=== PATIENT | male | born 1980 | race Caucasian/White ===

== ENCOUNTER 2018-10-19 12:20 | Emergency (ER) | payer BC, OTHER ==
[2018-10-19 13:21] LABS: INR-International Normal Ratio 1.3; Prothrombin Time 16.7 SEC (12.0-14.7)
[2018-10-19 13:25] LABS: ALT (SGPT) 56 U/L (8-55); AST (SGOT) 115 U/L (5-34); Albumin 2.6 g/dL (3.5-5.0); Alkaline Phosphatase 229 U/L (40-150); Anion Gap 14 mmol/L (10-20); BUN (Urea Nitrogen) 13 mg/dL (8.9-20.6); Bilirubin, Total 10.7 mg/dL (0.2-1.2); Calc. Creatinine Clearance 0 mL/min (70-130); Carbon Dioxide 19 mmol/L (22-29); Chloride 105 mmol/L (98-107); Estimated GFR-MDRD Greater than 90; Globulin 4.4 g/dL (2.4-3.5); Glucose 182 mg/dL (70-105); Lipase 53 U/L (8-78); Potassium 4.5 mmol/L (3.5-5.1); Sodium 133 mmol/L (136-145)
[2018-10-19 13:27] LABS: ALT (SGPT) 57 U/L (8-55); AST (SGOT) 109 U/L (5-34); Albumin 2.7 g/dL (3.5-5.0); Alkaline Phosphatase 235 U/L (40-150); Bilirubin, Direct 8.2 mg/dL (0.1-0.3); CK (CPK) 104 U/L (30-200); Protein, Total 6.7 g/dL (6.0-8.3)
[2018-10-19 13:29] LABS: Anisocytosis SLIGHT = 6-15 cells (100X) (0-5/hpf); Band 4 % (5-11); Eosinophils 1 % (0-10); Hemoglobin 11.9 g/dL (14.0-18.0); Hypochromia SLIGHT = 6-15 cells (100X) (0-5/hpf); Lymphocytes 8 % (21-51); MDiff Complete? YES; Mean Corpuscular HGB CONC 33.7 g/dL (32.0-36.0); Mean Corpuscular Hemoglobin 33.2 pg (27.0-31.0); Mean Corpuscular Volume 98.3 fL (78.0-98.0); Mean Platelet Volume 8.8 fL (7.4-10.4); Monocytes 5 % (0-10); Neutrophil 79 % (42-75); PLT Morphology Comment Appears Adequate; Platelet Count 158 thou/uL (130-400); RBC Distribution Width 13.2 % (11.5-14.5); Reactive Lymphocytes 1 % (0-10); Target Cells SLIGHT = 2-5 cells (100X) (0-1/hpf); White Blood Cell (WBC) Count 8.6 thou/uL (4.8-10.8)
--- NOTE | 2018-10-19 13:32 | RAD ---
FRONTAL VIEW CHEST LEFT RIB SERIES 4 VIEWS: Date: 10/19/18 INDICATION: Cough with popping sensation in left chest/rib pain. FINDINGS: The lungs are clear. No effusion or pneumothorax. Cardiac silhouette is within normal limits of size. Evaluation of the left ribs does not reveal evidence of discrete fracture. IMPRESSION: 1. No acute, displaced left rib fracture. 2. No focal consolidation. POS: [facility]
== END 2018-10-19 14:36 | disposition home or self-care (01) ==
LOC: SCSER 12:20
DX: S29.011A Strain of muscle and tendon of front wall of thorax, initial encounter (principal); R18.8 Other ascites; K74.60 Unspecified cirrhosis of liver; R17 Unspecified jaundice; D64.9 Anemia, unspecified; E11.9 Type 2 diabetes mellitus without complications; I10 Essential (primary) hypertension; F17.210 Nicotine dependence, cigarettes, uncomplicated; X58.XXXA Exposure to other specified factors, initial encounter
CPT/HCPCS: 36415; 80053; 82140; 82550; 83690; 83880; 84484; 85025; 85610; 85730; 99406

== ENCOUNTER 2018-10-28 11:14 | Inpatient (IN) | payer OTHER ==
[2018-10-28 12:03] LABS: #Eosinphils 0.1 thou/uL (0.0-0.7); #Lymphocytes 1.2 thou/uL (1.20-3.40); #Monocytes 2.1 thou/uL (0.11-0.59); #Neutrophils 16.2 thou/uL (1.40-6.50); %Basophils 0.1 % (0.0-1.0); %Eosinophils 0.6 % (0.0-10.0); %Lymphocytes 6.2 % (21.0-51.0); %Monocytes 10.5 % (0.0-10.0); %Neutrophils 82.6 % (42.0-75.0); Hemoglobin 8.7 g/dL (14.0-18.0); Mean Corpuscular HGB CONC 33.7 g/dL (32.0-36.0); Mean Corpuscular Hemoglobin 35.2 pg (27.0-31.0); Mean Platelet Volume 8.3 fL (7.4-10.4); Platelet Count 340 thou/uL (130-400); Red Blood Cell (RBC) Count 2.48 mill/uL (4.70-6.10); White Blood Cell (WBC) Count 19.6 thou/uL (4.8-10.8)
[2018-10-28 12:23] LABS: ALT (SGPT) 68 U/L (8-55); AST (SGOT) 109 U/L (5-34); Alkaline Phosphatase 167 U/L (40-150); Anion Gap 16 mmol/L (10-20); BUN (Urea Nitrogen) 55 mg/dL (8.9-20.6); Calc. Creatinine Clearance 0 mL/min (70-130); Calcium 8.3 mg/dL (7.8-10.44); Carbon Dioxide 18 mmol/L (22-29); Chloride 96 mmol/L (98-107); Estimated GFR-MDRD 68; Globulin 3.2 g/dL (2.4-3.5); Glucose 194 mg/dL (70-105); Potassium 5.8 mmol/L (3.5-5.1); Protein, Total 5.2 g/dL (6.0-8.3); Sodium 124 mmol/L (136-145)
[2018-10-28 12:23] LABS: Bilirubin Large (Negative); Blood, Urine Negative (Negative); Clarity CLOUDY (Clear); Glucose, Urine (Dipstick) Negative (Negative); Leukocyte Small (Negative); Nitrite Negative (Negative); Protein, Urine (Dipstick) Negative (Neg-Trace); Specific Gravity, Urine 1.017 (1.002-1.036)
[2018-10-28 12:25] LABS: Bacteria/HPF None Seen HPF (None Seen); RBC/HPF 0-3 HPF (0-3); Squamous Epithelial 0-3 HPF (0-3)
[2018-10-28 12:27] LABS: Pathc Cast-AUWi Flag 10.75 (0-2.49)
[2018-10-28 12:40] LABS: Yeast-AUWi Flag 62.9 (0-25.0); Yeast-All Forms None Seen HPF (None Seen)
[2018-10-28] MEDS ORDERED: Sodium Chloride 0.9% 100 ML ONE (12:55)
[2018-10-28] MEDS ORDERED: cefTRIAXone\\ROCEPHIN 1 GM VIAL ONE (12:56)
[2018-10-28 13:42] LABS: PTT 34.1 SEC (22.9-36.1); Prothrombin Time 22.6 SEC (12.0-14.7)
[2018-10-28] MEDS ORDERED: Lidocaine 1% PF 5 ML VIAL ONE ×2 (14:02→14:07)
[2018-10-28] MEDS ORDERED: Albumin 25% 25 GM/100 ML BOT IVPB SCH ×2 (14:15→14:45)
--- NOTE | 2018-10-28 15:38 | PDOC.FPRHP ---
- History of Present Illness Chief Complaint: confusion History of Present Illness: 38yo M with hx of alcohol abuse presents with 1 week hx of increasing abdominal distention and increasing confusion. Pt reports that the pt has been seeing his PCP (Dr. Mujica) who consulted GI (Dr. Iglesias) and that they had plans for paracentesis this week as well as abdominal CT but that his AMS has become intolerable. Of note pt has been anemic for a year and has reportedly had EGD and Colonoscopy in the spring but has found no source of anemia. ED Course: albumin, Rocephin 1g - Allergies/Adverse Reactions Allergies Allergy/AdvReac Type Severity Reaction Status Date / Time No Known Allergies Allergy Verified 10/26/18 09:09 - Home Medications Medication Instructions Recorded Confirmed Type Amlodipine [Norvasc] 10 mg PO DAILY 10/26/18 10/28/18 History Aspirin [Aspirin Chewable] 81 mg PO DAILY 10/26/18 10/26/18 History Ferrous Sulfate 325 mg PO DAILY 10/26/18 10/28/18 History Furosemide 40 mg PO DAILY 10/26/18 10/28/18 History Lisinopril/Hydrochlorothiazide 1 tablet PO DAILY 10/26/18 10/28/18 History [Lisinopril-Hctz 20-12.5 mg Tab] Multivitamin with Iron 1 each PO DAILY 10/26/18 10/28/18 History [Multivitamins with Iron] Spironolactone 100 mg PO DAILY 10/26/18 10/28/18 History metFORMIN HCl [Metformin ER 500 mg PO BID 10/26/18 10/28/18 History Osmotic] - History PMHx: DM, HTN, anemia PSHx: none FHx: non contibutory Social: EtOH- Pt reported drinking 4-5 standardized drinks of alcohol every night for the last 8 years. He quit drinking 1 month ago. Former smoker. Former cocaine use. - Review of Systems General: reports: fatigue. denies: fever/chills Eyes: denies: eye pain, vision changes ENT: denies: nasal congestion, rhinorrhea Respiratory: reports: cough. denies: congestion, shortness of breath Cardiovascular: denies: chest pain, palpitation Gastrointestinal: denies: nausea, vomiting Genitourinary: denies: incontinence, dysuria Skin: reports: jaundice, other (spider angiomas) Musculoskeletal: denies: pain, tenderness Neurological: denies: numbness, syncope Psychological: denies: anxiety, depression - Vital signs BP: [103/66] HR: [109] RR: [28] Tmax: [97.7] Pox: [100]% on [ra] Wt: [112kg] - Physical Exam Constitutional: awake, alert and oriented, other (pt appears mildy uncomfortable ) HEENT: normocephalic and atraumatic, EOMI, grossly normal vision, grossly normal hearing Neck: supple, trachea midline Chest: no-tender to palpation Heart: RRR, other (grade 3/6 holosystolic murmur (chronic)) Lungs: CTAB, no wheezing Abdomen: bowel sounds present, other (distended) Musculoskeletal: normal structure, normal tone Neurological: no focal deficit, normal sensation Skin: no rash/lesions, other (Jaundice) Heme/Lymphatic: no unusual bruising or bleeding Psychiatric: other (flat affect, marginal judgement) FMR H&P: Results - Labs Result Diagrams: 10/28/18 19:55 10/28/18 19:55 Lab results: WBC 19.6 thou/uL (4.8-10.8) H 10/28/18 11:53 Hgb 8.7 g/dL (14.0-18.0) L 10/28/18 11:53 Hct 25.9 % (42.0-52.0) L 10/28/18 11:53 MCV 104.0 fL (78.0-98.0) H 10/28/18 11:53 Plt Count 340 thou/uL (130-400) 10/28/18 11:53 Neutrophils % 82.6 % (42.0-75.0) H 10/28/18 11:53 Sodium 124 mmol/L (136-145) L 10/28/18 11:53 Potassium 5.8 mmol/L (3.5-5.1) H 10/28/18 11:53 Chloride 96 mmol/L (98-107) L 10/28/18 11:53 Carbon Dioxide 18 mmol/L (22-29) L 10/28/18 11:53 BUN 55 mg/dL (8.9-20.6) H 10/28/18 11:53 Creatinine 1.19 mg/dL (0.7-1.3) 10/28/18 11:53 Glucose 194 mg/dL (70-105) H 10/28/18 11:53 Lactic Acid 5.0 mmol/L (0.5-2.2) H* 10/28/18 12:18 Calcium 8.3 mg/dL (7.8-10.44) 10/28/18 11:53 Total Bilirubin 10.0 mg/dL (0.2-1.2) H 10/28/18 11:53 AST 109 U/L (5-34) H 10/28/18 11:53 ALT 68 U/L (8-55) H 10/28/18 11:53 Alkaline Phosphatase 167 U/L (40-150) H 10/28/18 11:53 Ammonia 100 umol/L (18-72) H 10/28/18 12:17 B-Natriuretic Peptide Less than 10.0 pg/mL (0-100) 10/28/18 11:53 Serum Total Protein 5.2 g/dL (6.0-8.3) L 10/28/18 11:53 Albumin 2.0 g/dL (3.5-5.0) L 10/28/18 11:53 Urine Ketones Trace mg/dL (Negative) H 10/28/18 12:10 Urine Blood Negative (Negative) 10/28/18 12:10 Urine Nitrite Negative (Negative) 10/28/18 12:10 Ur Leukocyte Esterase Small (Negative) H 10/28/18 12:10 Urine RBC 0-3 HPF (0-3) 10/28/18 12:10 Urine WBC 4-6 HPF (0-3) H 10/28/18 12:10 Ur Squamous Epith Cells 0-3 HPF (0-3) 10/28/18 12:10 Urine Bacteria None Seen HPF (None Seen) 10/28/18 12:10 FMR H&P: A/P - Problem List (1) Sepsis Current Visit: Yes Status: Acute Code(s): A41.9 - SEPSIS, UNSPECIFIED ORGANISM (2) Ascites due to alcoholic cirrhosis Current Visit: Yes Status: Acute Code(s): K70.31 - ALCOHOLIC CIRRHOSIS OF LIVER WITH ASCITES (3) Hepatic encephalopathy Current Visit: Yes Status: Acute Code(s): K72.90 - HEPATIC FAILURE, UNSPECIFIED WITHOUT COMA (4) Hyperkalemia Current Visit: Yes Status: Acute Code(s): E87.5 - HYPERKALEMIA (5) Fluid overload Current Visit: Yes Status: Acute Code(s): E87.70 - FLUID OVERLOAD, UNSPECIFIED (6) Hypertension Current Visit: Yes Status: Acute Code(s): I10 - ESSENTIAL (PRIMARY) HYPERTENSION (7) Anemia Current Visit: Yes Status: Acute Code(s): D64.9 - ANEMIA, UNSPECIFIED (8) Liver failure, acute Current Visit: Yes Status: Acute (9) Lactic acidosis Current Visit: Yes Status: Acute Code(s): E87.2 - ACIDOSIS - Plan 38yo M with pmh of alcohol abuse presents with 1 week hx of AMS and abdominal distention Sepsis with concern for SBP A- meets sirs criteria though he is not ttp in abdomen and ascitic fluid was clear yellow. s/p rocephin in the ED P- admit to tele - continue Rocephin 2g daily - Await studies of ascitic fluid - BCx - trend CBC Hyperkalemia A- Potassium 5.8, no cardiac symptoms as of now. P- Will give Kayexelate and insulin - recheck CMP in AM Fluid Overload 2/2 Liver failure A- Pt is overloaded but is not in respiratory distress and appears stable P- Lasix 40mg IV daily - fluid restrict to 1500ml/day - GI has been consulted - monitor symptoms and physical exam HTN A- hx of htn, though pt is not hypertensive P- hold home meds DM -continue home metformin Anemia -will get hemoccult -await GI recs Dispo: inpatient, at least two midnights IVF- SL as of now, fluid restrict diet Code: full FMR H&P: Upper Level - Pertinent history 38 yo Male coming in with week history of bloating, abdominal pain and swelling. stated she had noticed bloating off and on for the last month. Reports it just getting worse this week. Reports getting more yellow in color the last few days. denies pt being overly confused but states his speech being off. Also reports being more tired than usual. Pt had been seeing Dr. Mujica this week and was going to see Dr. Iglesias early this week. mentioned possible concern for budd-chiari. Pt denies any chest pain. Pt did reports some difficulty with breathing. Pt anemic today at hgb 8, down from hgb last week of 12. Pt reports dealing with anemia for last year. Reports that never really found a source but was put on iron and got better. - Pertinent findings Pt ammonia 100. WBC of 19.6 K of 5.8 Pt RR 24, and tachy in low 100's. Pt is A&Ox3. General: Jaundiced. Pt appears somewhat ill Cardio: Systolic murmur noted. Regular Rhythm. Tachy. No gallops Lungs: Some mild crackles noted. No wheezes or rales Abdomen: Severly distended. Ascites noted. Fluid wave noted. NTTP. No masses Neuro: No focal neuro defecit : Testicles severly distended. No redness. NTTP Ext: Pt has +1 edma in lower extremities. Pedal pulses palpated bilaterally - Plan Date/Time: 10/28/18 1538 I, [Fizt Chavarria], have evaluated this patient and agree with findings/plan as outlined by corporate intern resident. Pertinent changes/additions are listed here. Sepsis with concern for SBP - meets sirs criteria though he is not ttp in abdomen and ascitic Pt RR 24, pt tachy and has WBC of 19.6. fluid was clear yellow. s/p rocephin in the ED -Diagnostic Paracentesis 10/28/18- sent for stain and culture. - admit to tele - continue Rocephin 2g daily - BCx - trend CBC Hyperkalemia Potassium 5.8, no cardiac symptoms as of now. Will give Kayexelate and insulin -Pt sinus tach on EKG - recheck CMP in AM Fluid Overload 2/2 Liver failure Pt is overloaded but is not in respiratory distress and appears stable -Lasix 40mg IV daily -fluid restrict to 1500ml/day - GI consulted- Dr. Iglesias- follow recs. - monitor symptoms and physical exam Hepatic Encephalopathy -Pt A&Ox3. but pt reported he has just been off and somnolent for last week -Ammonia 100 -Px lactulose -GI consulted Lactic Acidosis -Likely due to liver failure and not clearing. Could be due to SBP -Will await cx. HTN hx of htn, though pt is not hypertensive hold home meds DM -continue home metformin -accuchecks AC/HS Anemia Pt Hgb 12 last week at ER and now 8 today. denies any bloody emitus -will get hemoccult, if positive will repeat CBC. If neg will trend daily CBC -Possible GI bleed. -GI consulted- follow recs -Will replace if <7 -
[2018-10-28 16:14] LABS: BF Color Yellow; Body Fluid Source Ascites Body Fluid; Clarity Hazy (Clear); Tube # 2
[2018-10-28] MEDS ORDERED: Ondansetron PF 4 MG/2 ML Vial IVP PRN (16:14)
[2018-10-28] MEDS ORDERED: Insulin Regular 300 UNITS/3 ML VIAL SC SCH (16:14)
[2018-10-28] MEDS ORDERED: Ondansetron ODT 4 MG TAB PO PRN (16:14)
[2018-10-28] MEDS ORDERED: Furosemide 40 MG/4 ML VIAL SLOW IVP SCH (16:14)
[2018-10-28 16:25] LABS: BF RBC Count - Manual 2525 /cumm; BF WBC/Nonhematics Ct. - Manua 73 /cumm
[2018-10-28 16:38] LABS: BF Segmented Neutrophils 17 %; Cell Count Non Hematic 64 %; Lymphocytes 19 %
[2018-10-28] MEDS ORDERED: metFORMIN 500 MG TAB PO SCH (17:00)
[2018-10-28] MEDS ORDERED: Insulin Regular 300 UNITS/3 ML VIAL ONE (17:13)
[2018-10-28] MEDS ORDERED: Dextrose 50% Abboject 50 ML SYRINGE ONE (17:13)
[2018-10-28] MEDS ORDERED: Furosemide 40 MG/4 ML VIAL ONE (17:28)
[2018-10-28] MEDS ORDERED: Rocuronium Bromide 50 MG/5 ML VIAL ONE ×2 (17:51→17:52)
[2018-10-28] MEDS ORDERED: Norepinephrine 8 MG/0.9% NS 250 ML ONE (18:31)
[2018-10-28] MEDS ORDERED: Fentanyl 100 MCG/2 ML VIAL ONE (18:33)
[2018-10-28 18:43] LABS: Lavender RECEIVED; Red RECEIVED
[2018-10-28] MEDS ORDERED: Atropine Sulfate 1 mg/10 ml Syringe ONE (19:00)
[2018-10-28] MEDS ORDERED: Sodium Bicarb 50 MEQ/50 ML Abboject 8.4% SYRINGE ONE (19:00)
[2018-10-28] MEDS ORDERED: Calcium Chloride 1 GM/10 ML Abboject SYRINGE ONE (19:00)
[2018-10-28] MEDS ORDERED: EPINEPHrine 1 MG/10 ML Abboject SYRINGE ONE ×2 (19:00→21:32)
[2018-10-28] MEDS ORDERED: Pantoprazole 40 MG VIAL IVP SCH ×2 (19:15→19:53)
[2018-10-28] MEDS ORDERED: Octreotide Acetate 50 MCG/ML AMP SLOW IVP SCH (19:15)
[2018-10-28] MEDS ORDERED: Octreotide Acetate 1,250 MCG in Sodium Chloride 0.9% 250 ML 250 ML IVPB SCH (19:15)
[2018-10-28] MEDS ORDERED: Octreotide Acetate 100 MCG/ML VIAL SLOW IVP SCH (19:15)
[2018-10-28 19:19] LABS: Actual Bicarbonate (HCO3a) 14.4 mEq/L (22-28); Analyzer IN Cardio ER; Base Excess (BEa) -16.5 mEq/L (-2.0 to +3.0); Calcium, Ionized 1.03 mmol/L (1.12-1.30); Carboxyhemoglobin (COHb) 0.3 gm% (0.0-3.0); Hemoglobin (Hb) 8.2 g/dL (14.0-18.0); O2 Tension (PaO2) 93.2 mmHg (80.0-100.0); Potassium - ABG Lab 4.75 mmol/L (3.70-5.30)
[2018-10-28 19:35] LABS: CO2 Tension 63.2 mmHg (35.0-45.0); pH, Arterial 6.98 (7.35-7.45)
[2018-10-28 19:36] LABS: Puncture Site LBA
[2018-10-28] MEDS ORDERED: Ventilator Sedation Protocol 1 EACH FS SCH (19:46)
[2018-10-28] MEDS ORDERED: CCU Electrolyte Replacement 1 EACH FS SCH (19:47)
[2018-10-28] MEDS ORDERED: Pantoprazole 40 MG VIAL ONE (19:52)
[2018-10-28] MEDS ORDERED: Propofol 1,000 MG/100 ML VIAL IV PRN (19:54)
[2018-10-28] MEDS ORDERED: Fentanyl BOLUS 250 ML IVPB PRN (19:54)
[2018-10-28] MEDS ORDERED: Propofol BOLUS 1,000 MG/100 ML VIAL IV PRN (19:54)
[2018-10-28] MEDS ORDERED: DISCONTINUE PREVIOUS NARCOTIC PAIN MEDICATIONS AND BENZODIAZEPINES FS SCH (19:54)
[2018-10-28] MEDS ORDERED: Lorazepam 2 MG/ML VIAL SLOW IVP PRN (19:54)
[2018-10-28] MEDS ORDERED: Morphine 2 MG/ML SYRINGE SLOW IVP PRN (19:54)
[2018-10-28] MEDS ORDERED: Potassium Chloride 40 MEQ in Sodium Chloride 0.9% 250 ML 250 ML IVPB PRN (19:55)
[2018-10-28] MEDS ORDERED: Magnesium Oxide 400 MG TAB PO PRN ×2 (19:55)
[2018-10-28] MEDS ORDERED: Potassium Chloride 40 MEQ in Premix Bag 1 BAG IVPB PRN (19:55)
[2018-10-28] MEDS ORDERED: Potassium Chloride 20 MEQ TAB PO PRN (19:55)
[2018-10-28] MEDS ORDERED: CCU ELECTROLYTE REPLACEMENT PROTOCOL FS PRN (19:55)
[2018-10-28] MEDS ORDERED: Potassium Phosphate 9 MMOL in Sodium Chloride 0.9% 100 ML IVPB PRN (19:55)
[2018-10-28] MEDS ORDERED: Potassium Phosphate 12 MMOL in Sodium Chloride 0.9% 250 ML 250 ML IV PRN (19:55)
[2018-10-28] MEDS ORDERED: Magnesium 2 GM/NS 0.9% 100 ML 2 GM in Premix Bag 1 BAG IVPB PRN (19:55)
[2018-10-28] MEDS ORDERED: Potassium Phosphate 15 MMOL in Sodium Chloride 0.9% 250 ML 250 ML IV PRN (19:55)
[2018-10-28 20:03] LABS: Hemoglobin 7.9 g/dL (14.0-18.0); Mean Corpuscular Hemoglobin 32.4 pg (27.0-31.0); Mean Platelet Volume 8.3 fL (7.4-10.4); Platelet Count 202 thou/uL (130-400); RBC Distribution Width 15.9 % (11.5-14.5); Red Blood Cell (RBC) Count 2.45 mill/uL (4.70-6.10); White Blood Cell (WBC) Count 31.6 thou/uL (4.8-10.8)
[2018-10-28 20:05] LABS: INR-International Normal Ratio 2.4; Prothrombin Time 26.1 SEC (12.0-14.7)
[2018-10-28 20:06] LABS: PTT 83.2 SEC (22.9-36.1)
--- NOTE | 2018-10-28 20:12 | PDOC.EVN ---
Event Note - Event Note Event Note: We were notified of this patient at early 1700 that patient was not doing well. He had increased respirations and his confusion had been worsening. Initially pt RR was 30 but pt O2 sats were stable at 95% on RA. We put on oxygen to help with air hunger. He then began to desat and was only maintaining O2sats of 89-90 % on 2L. We then put him on a nonrebreather o2 mask and pts O2 sats went up to 95-100%. Pt BP then dropped to 95/35 and pt was not responding to sternal rub. It was at this time we decided to intubate. We paralyzed with rocoronium and he did not require any sedation. Intubation was difficult as pt started vomiting blood clots. Pt soon coded shortly after being intubated. He had mutliple rhythms of PEA and V.fib. Pt recieved multiple doses of bicarb and epi. Pt was shocked at least 5 times. Left femoral central line access was attempted during code but unsuccessful. Central line access was successful in right femoral vein. Pt was coded for over 30 minutes and finally stabilized with rhythm of sinus tach. Pt still not responsive to sternal rub. Large amounts of blood was noted to be coming from NG tube still. Pt was started on the mass transfusion protocol. Dr. christie was called immediately after stabilization and made aware.
[2018-10-28 20:14] LABS: Anisocytosis SLIGHT = 6-15 cells (100X) (0-5/hpf); Band 9 % (5-11); Eosinophils 1 % (0-10); Lymphocytes 7 % (21-51); MDiff Complete? YES; Metamyelocyte 10 % (0-0); Monocytes 5 % (0-10); Myelocyte 3 % (0-0); Neutrophil 65 % (42-75); Nucleated RBC 1 % (0); PLT Morphology Comment Appears Adequate; Polychromasia MODERATE = 3-4 cells (100X) (0-2/hpf); Tear Drops SLIGHT = 2-5 cells (100X) (0-1/hpf)
--- NOTE | 2018-10-28 20:17 | RAD ---
PORTABLE CHEST: Indications: Post cardiac arrest. Assess ET tube placement. FINDINGS/IMPRESSION: ET tube is above the jeff. NG tube appears adequately positioned. There are bilateral hazy perihilar infiltrates suggesting edema. POS: [facility]
[2018-10-28 20:21] LABS: ALT (SGPT) 451 U/L (8-55); AST (SGOT) 1096 U/L (5-34); Albumin 2.1 g/dL (3.5-5.0); Alkaline Phosphatase 152 U/L (40-150); Anion Gap 28 mmol/L (10-20); BUN (Urea Nitrogen) 57 mg/dL (8.9-20.6); Bilirubin, Total 7.1 mg/dL (0.2-1.2); Calc. Creatinine Clearance 0 mL/min (70-130); Calcium 8.4 mg/dL (7.8-10.44); Carbon Dioxide 14 mmol/L (22-29); Chloride 97 mmol/L (98-107); Estimated GFR-MDRD 43; Globulin 2.2 g/dL (2.4-3.5); Glucose 158 mg/dL (70-105); Potassium 5.1 mmol/L (3.5-5.1); Protein, Total 4.3 g/dL (6.0-8.3); Sodium 134 mmol/L (136-145)
[2018-10-28] MEDS ORDERED: Metoclopramide HCl 10 MG/2 ML VIAL ONE (20:45)
[2018-10-28 20:53] LABS: Actual Bicarbonate (HCO3a) 17.7 mEq/L (22-28); Analyzer IN Cardio ER; Base Excess (BEa) -8.8 mEq/L (-2.0 to +3.0); CO2 Tension 40.5 mmHg (35.0-45.0); Calcium, Ionized 0.93 mmol/L (1.12-1.30); Carboxyhemoglobin (COHb) 0.2 gm% (0.0-3.0); Hemoglobin (Hb) 8.7 g/dL (14.0-18.0); O2 Tension (PaO2) 144.7 mmHg (80.0-100.0); Potassium - ABG Lab 4.93 mmol/L (3.70-5.30); pH, Arterial 7.26 (7.35-7.45)
[2018-10-28 20:54] LABS: ALV-art Gradient 517.675 (0-20); Puncture Site RRA
[2018-10-28] MEDS ORDERED: Ethanolamine Oleate 5% 2 ml Ampule ONE (21:32)
[2018-10-28] MEDS ORDERED: Vecuronium 10 MG VIAL ONE (22:07)
[2018-10-28] MEDS: fentaNYL Citrate/PF 2,000 MCG in Sodium Chloride 0.9% 60 ML IV SCH (22:14)
[2018-10-28] MEDS ORDERED: Vecuronium 10 MG VIAL IV SCH (22:15)
[2018-10-28] MEDS ORDERED: Sodium Chloride 0.9% 1,000 ML IV SCH (22:15)
[2018-10-28] MEDS ORDERED: Sterile Water 10 ML VIAL IVP SCH (22:15)
--- NOTE | 2018-10-28 22:25 | PRG ---
DATE OF SERVICE: 10/28/2018 TIME OF NOTE: 2114 hours. SUBJECTIVE: I arrived to the emergency room at the patient's bedside at approximately 6:05 p.m. At that time, CPR was noted to be in progress. Per report from Dr. Chavarria, the patient had had some increasing somnolence and obtundation as well as increased respiratory effort. Decision had been made few minutes prior to intubate him. During the intubation process, the patient noted to be vomiting bloody-appearing material and had what I believe was ventricular fibrillation. CPR began at 1803 hours. Over the next 27 minutes, the patient received multiple rounds of epinephrine, bicarbonate, fluid bolus, blood products, and was defibrillated approximately 6 times. At 1830 hours, return of spontaneous circulation was achieved. Family updated at that time and advised of the critical nature of the patient's condition and plans moving forward. Also at that time, Dr. Sarmiento with Critical Care Medicine as well as Dr. Iglesias with GI were notified and updated of recent events. The patient continued to stabilize and maintained blood pressure near the 100s over 50s and pulse in the low 100s. He was unresponsive but also started on fentanyl for sedation as he was intubated at this time. Repeat labs were obtained immediately after showing pH of 6.98, PCO2 in the 40s, and base deficit 16.5. The patient was given more bicarbonate. Mass transfusion protocol was also activated at that time and continued over the next couple of hours. I presented back to the patient's bedside at approximately 1945 hours. Vitals were overall stable on ventilator. He was in the sinus tachycardic to the 120s. Nursing had just irrigated his nasogastric tube, at which time, the patient began having large amount of bloody discharge from the NG tube. Repeat labs were obtained at that time, and the patient continued on the mass transfusion protocol. On my orders, the patient was started on Octreotide drip and Protonix drip. Mass transfusion protocol was continued. Dr. Iglesias was called and updated by Dr. Chavarria. Repeat labs were obtained at that time, which showed a stable hemoglobin of 7.9, which is a mild drop from initial hemoglobin of 8.7. The patient was also given 4 amps of bicarb as well as started on a bicarbonate drip due to his pH of 6.98. Repeat ABG approximately 30 minutes later showed pH of 7.25, PCO2 of 40.5, pO2 of 144.7, and base deficit of 8.8. The patient continued to have stable vitals during this time. Dr. Iglesias was present at bedside and updated the family and consented them for interventional procedures. Multiple medication infusions as well as changes were instituted over the coming hour to improve the patient's stability. At the time of this note, the patient was noted to have blood pressure of 107/41, heart rate 116 and he is at current time being transferred upstairs to the ICU. Dr. Sarmiento and Dr. Iglesias had been updated with the patient's most recent condition, and the family has been updated as well. TIME SPENT: 90 minutes of critical care time provided in the stabilization of this patient outside the initial history and physical, which occurred several hours earlier. Job ID: [id number]
--- NOTE | 2018-10-28 23:08 | CON ---
DATE OF CONSULTATION: 10/28/2018 REASON FOR CONSULTATION: Hematemesis, cirrhosis. CONSULTING PHYSICIAN: Dr. Vijay Jauregui. HISTORY OF PRESENT ILLNESS: The patient is a 38-year-old male with past medical history of alcohol abuse, hypertension, and iron-deficiency anemia, presenting with complaints of increased abdominal distention, lethargy, and general malaise. The patient was initially evaluated in January 2018 for iron-deficiency anemia as noted on iron indices and subsequently underwent EGD, colonoscopy, and capsule endoscopy with no etiology seen during that time that would contribute to an iron-deficiency anemia. Of note, the upper endoscopy did not see any evidence of esophageal varices or gastric ulcers at that time. However, approximately 3 weeks ago, the patient was admitted to the hospital with complaints of increased abdominal distention and diagnosed with cirrhosis of the liver based on the presence of ascites and extensive alcohol abuse, which the patient admits to drinking heavily for the last 3 to 5 years. He was seen in the GI clinic on October 24, 2018 with continued abdominal distention/ascites and ultimately placed on diuretic management including spironolactone 100 mg daily and furosemide 40 mg daily in addition to obtaining a CT of the abdomen and pelvis and a paracentesis to further evaluate the source of his ascites and/or evaluate for SBP. However, over the last 2 to 3 days, per the patient's , he has been having increased episodes of memory loss, lethargy, slurred speech, and increased somnolence by sleeping most of the day, thus prompting her and the patient to seek healthcare assistance in the [facility] ER earlier today. However, during the course of the workup earlier this evening, the patient experienced acute respiratory arrest and was subsequently coded for approximately 30 minutes (per resident report) with return of spontaneous circulation at that time. At the time of the code, he was noted to have a significant amount of blood within the posterior oropharynx when he was intubated concerning for GI bleed. Repeat evaluation of his H and H revealed a significant decrease in his H and H, and he was subsequently resuscitated with IV fluids and approximately 6 units of PRBCs. Currently, the patient is intubated and sedated in the ER with a bedside canister showing approximately 200 mL of bright red/gross blood, at bedside. REVIEW OF SYSTEMS: The patient is currently intubated and sedated and cannot contribute to review of systems. Upon conferring with the , all responses were negative except for the pertinent positives as listed in the HPI. PAST MEDICAL HISTORY: As per HPI. PAST SURGICAL HISTORY: None. FAMILY HISTORY: Denies any GI malignancies. SOCIAL HISTORY: Former smoker and cocaine use. Had been drinking approximately 4 to 5 drinks daily for the last 8 years, but quit drinking approximately 1 month ago. OUTPATIENT MEDICATIONS: Include; 1. Amlodipine 10 mg daily. 2. Aspirin 81 mg daily. 3. Ferrous sulfate 325 mg daily. 4. Furosemide 40 mg daily. 5. Lisinopril/hydrochlorothiazide 20/12.5 mg daily. 6. Spironolactone 100 mg daily. 7. Metformin 500 mg twice daily. ALLERGIES: NO KNOWN DRUG ALLERGIES. PHYSICAL EXAMINATION: VITAL SIGNS: Pulse was 110, blood pressure 108/64, respiratory rate 16, and saturating 100% on mechanical ventilation. GENERAL: The patient was intubated and sedated. HEENT: Neck supple. No JVD, but scleral icterus was noted. CARDIOVASCULAR: Tachycardic rate, but regular rhythm. RESPIRATORY: Coarse breath sounds heard in all lung varela consistent with mechanical ventilation. ABDOMEN: Hypoactive bowel sounds. Abdomen was mildly tense to palpation. Significant abdominal distention with no grimacing to palpation in all abdominal quadrants. Dressing was in place along the lower left quadrant that was oozing ascitic fluid as evidence of prior paracentesis earlier today. EXTREMITIES: 2+/3+ bilateral lower extremity edema extending up to mid thigh. LABORATORY DATA: CBC with a white blood cell count of 19.6, hemoglobin 8.7, hematocrit 25.9, and platelets 340. INR 2.0. Lactic acid 14.8. Chemistry with a sodium of 124, potassium 5.8, chloride 96, CO2 of 18, BUN 55, creatinine 1.19, and glucose 194. AST 109, ALT 68, alkaline phosphatase 167, total bilirubin 10, ammonia 100, and albumin 2.0. IMAGING DATA: Chest x-ray obtained on October 28, 2018 showed bilateral hazy perihilar infiltrates suggesting edema. The ET tube was above the jeff with the NG tube appearing in adequate position. No other imaging studies are available for review. ASSESSMENT AND PLAN: The patient is a 38-year-old male with past medical history of hypertension, diabetes, and new diagnosis of cirrhosis complicated by ascites and probable hepatic encephalopathy, presenting with hematemesis consistent with an upper gastrointestinal bleed. Upper gastrointestinal bleed. The patient is presenting with a history of iron deficiency anemia, but no evidence of overt blood loss since January of this last year. Upper endoscopy and colonoscopy obtained in January 2018 did not show any obvious sources of bleeding or evidence of iron-deficiency anemia. Also of note, no esophageal varices were seen on upper endoscopy on January 31, 2018. However, the patient is now presenting with significantly increased abdominal distention, ascites, and now hematemesis of gross vero blood concerning for an esophageal varix bleed. Also within the differential are peptic ulcer disease, arteriovenous malformation, Dieulafoy lesion and/or gastrointestinal malignancy (much less likely given negative EGD earlier this year). Recommendations: 1. Would continue to trend H and H and transfuse as necessary to maintain an H and H of 06/02. 2. Continue to monitor clinically for signs of gastrointestinal bleeding. 3. Would avoid aggressive suctioning of the stomach to prevent any removal of blood clots overlying the bleeding source. 4. Recommend Reglan 10 mg IV x1 as a prokinetic to empty the stomach of blood to facilitate visualization of the gastric mucosa. 5. Would proceed with urgent EGD tonight for evaluation of a possible upper gastrointestinal bleed. 6. Please keep the patient n.p.o. with no administration of tube feeds at this time. 7. Would see to attempt to reverse coagulopathy with blood products/FFP. Ascites/cirrhosis. The patient is presenting with the fairly acute onset of significant ascites approximately 3 weeks ago that prompted evaluation in the [facility] ER. He was subsequently seen in the GI clinic and noted to have significant distention at that time with paracentesis and diuretic therapy initiated at that time. At that time, he had a normal synthetic function in terms of his liver labs, although there was a mild elevation in his AST and ALT, but he continues to have a normal platelet count, which is not commonly seen with cirrhosis of the liver. The concern for a Budd-Chiari type syndrome is still high in the list given the speed at which he developed these symptoms and progressed to his current clinical status. However, given his alcohol history, alcoholic-induced cirrhosis is not outside the realm of possibility. Recommendations: 1. Would stabilize the patient's status first prior to any further workup for etiology of his cirrhosis. 2. We would attempt to obtain a CT of the abdomen and pelvis with a contrasted study of the liver to evaluate for a Budd-Chiari versus possible hepatocellular carcinoma contributing to the current clinical situation. 3. We will follow up on the paracentesis fluid results to help further evaluate if this is a poor hypertensive versus other etiology. I will add a fluid protein and fluid albumin to help differentiate. Hepatic encephalopathy. The patient presented today with [id number] change in mental status over the last few days, characterized as slurring of speech, memory loss, and increased somnolence by sleeping during most of the day. At the current time, these constellation of symptoms are concerning for hepatic encephalopathy of [id number] degree. He was also noted to have a modestly elevated ammonia, which could further indicate hepatic encephalopathy. Recommendations: 1. Again, stabilization of his hematemesis as above. 2. Once the patient is stabilized, would consider placing the patient on lactulose administration for clearing of ammonia to help treat hepatic encephalopathy. We will continue to follow. Please call with any questions. Job ID: [id number]
[2018-10-28 23:27] LABS: Actual Bicarbonate (HCO3a) 15.3 mEq/L (22-28); Base Excess (BEa) -10.6 mEq/L (-2.0 to +3.0); CO2 Tension 33.7 mmHg (35.0-45.0); Calcium, Ionized 0.86 mmol/L (1.12-1.30); Carboxyhemoglobin (COHb) 1.3 gm% (0.0-3.0); Hemoglobin (Hb) 7.7 g/dL (14.0-18.0); O2 Tension (PaO2) 102.3 mmHg (80.0-100.0); Potassium - ABG Lab 5.01 mmol/L (3.70-5.30); pH, Arterial 7.28 (7.35-7.45)
[2018-10-28 23:29] LABS: ALV-art Gradient 568.575 (0-20); Puncture Site RBR
[2018-10-28 23:36] LABS: Hemoglobin 7.7 g/dL (14.0-18.0); Mean Corpuscular HGB CONC 33.6 g/dL (32.0-36.0); Mean Corpuscular Hemoglobin 30.7 pg (27.0-31.0); Mean Corpuscular Volume 91.5 fL (78.0-98.0); Mean Platelet Volume 8.2 fL (7.4-10.4); Platelet Count 148 thou/uL (130-400); RBC Distribution Width 20.7 % (11.5-14.5); White Blood Cell (WBC) Count 25.2 thou/uL (4.8-10.8)
[2018-10-28 23:38] LABS: INR-International Normal Ratio 2.1; Prothrombin Time 23.5 SEC (12.0-14.7)
[2018-10-28 23:39] LABS: PTT 62.3 SEC (22.9-36.1)
[2018-10-28 23:48] LABS: Band 5 % (5-11); Hypochromia SLIGHT = 6-15 cells (100X) (0-5/hpf); Lymphocytes 4 % (21-51); MDiff Complete? YES; Monocytes 6 % (0-10); Neutrophil 85 % (42-75); PLT Morphology Comment Appears Adequate; Polychromasia SLIGHT = 2-3 cells (100X) (0-2/hpf)
[2018-10-28 23:54] LABS: ALT (SGPT) 667 U/L (8-55); AST (SGOT) 1737 U/L (5-34); Albumin 2.2 g/dL (3.5-5.0); Alkaline Phosphatase 101 U/L (40-150); Anion Gap 30 mmol/L (10-20); BUN (Urea Nitrogen) 54 mg/dL (8.9-20.6); Bilirubin, Total 5.5 mg/dL (0.2-1.2); Calc. Creatinine Clearance 0 mL/min (70-130); Calcium 7.9 mg/dL (7.8-10.44); Carbon Dioxide 14 mmol/L (22-29); Chloride 98 mmol/L (98-107); Estimated GFR-MDRD 44; Glucose 162 mg/dL (70-105); Potassium 5.2 mmol/L (3.5-5.1); Protein, Total 4.2 g/dL (6.0-8.3); Sodium 137 mmol/L (136-145)
[2018-10-29 00:13] LABS: Lactic Acid 14.6 mmol/L (0.5-2.2)
[2018-10-29 00:17] VITALS: BMI 37.5
[2018-10-29] MEDS: Sodium Bicarbonate 150 MEQ in Dextrose 5% in Water 1,000 ML IV SCH ×3 (00:27→13:23)
--- NOTE | 2018-10-29 00:40 | OP ---
DATE OF PROCEDURE: 10/28/2018 PROCEDURES: Esophagogastroduodenoscopy with submucosal injection and control of hemorrhage. INDICATION FOR PROCEDURE: Hematemesis with history of cirrhosis. DESCRIPTION OF PROCEDURE: After the risks and benefits were explained to the patient's surrogate (the patient's ), including risks of bleeding, infection, perforation, reactions to anesthesia, aspiration and/or pain, informed consent was obtained. The patient was transferred to the ICU prior to the procedure itself with the EGD performed while in the ICU. Sedation was administered via small amount of propofol via ICU nursing support. Once adequate sedation was achieved, the standard gastroscope was introduced into the mouth with intubation of the esophagus, stomach, and small intestine with the findings listed below. The patient tolerated the procedure well, but did have significant hypotension during the procedure that did require placement on pressor support and titration up to achieve an adequate mean arterial pressure. However, the patient was in stable condition at the completion of the procedure. At the completion of the procedure, all equipment was removed from the patient and the patient recovered while in the ICU. FINDINGS: Esophagus: Small hematomas were seen in the proximal esophagus without any evidence of active/recent bleeding and no underlying varices seen in these regions. Normal-appearing mucosa was seen in the midesophagus. However, large (grade 2) esophageal varices were seen in the distal esophagus without any high-risk stigmata of bleeding (there were no fibrin clots, red spots, or red jhon sign seen in the distal esophagus). Both the GE junction and diaphragmatic pinch were well seen at approximately 40 cm past the incisors. While in the esophagus, there was no evidence of erosions, ulcerations, mass lesions, or active/recent bleeding. Stomach: A large amount of clotted blood was seen in the proximal stomach completely obscuring visualization of the gastric cardia, fundus, and proximal body. Attempts to suction the blood clots out was unsuccessful despite aggressive irrigation and suctioning of the mucosa seen. Small superficial ulcerations were seen along the distal gastric body along the greater curvature characterized as small ulcerations that were dark pigmented with old blood, but there was no evidence of recent bleeding from any of the small ulceration. Normal-appearing mucosa was also seen in the incisura. However, increased mucosal edema was seen in the gastric antrum and with aggressive irrigation and suctioning, adequate visualization of the underlying mucosa was achieved. In the prepyloric area, there was a 4 to 5 mm ulceration with an overlying adherent clot that did not display any active bleeding at the time of this examination. However, given the adherent clot being high-risk stigmata of bleeding, this was intervened upon with epinephrine injected in a 4-quadrant fashion within the submucosa to achieve local vasoconstriction. Then using a 10-Cypriot bipolar cautery probe, cauterization was applied to the ulceration with good hemostasis achieved. Otherwise, there were no further evidence of ulcerations or active bleeding seen within the stomach. Duodenum: Three superficial ulcerations were seen in the duodenal bulb along the posterior and inferior donaldson, but did not display any active or recent bleeding. Given the superficial nature of these clean-based ulcers, the likelihood of bleeding from these regions is unlikely with a low-risk rebleeding potential that were not intervened upon. Otherwise normal-appearing mucosa was seen in both the duodenal bulb and second portion of the duodenum after aggressive irrigation and suctioning due to a significant amount of bright red blood in both regions. IMPRESSION: 1. Incomplete visualization of the upper gastrointestinal tract secondary to a significant amount of bright red/dark blood contained within the proximal stomach, but also within the distal stomach and proximal portion of the small intestine. 2. Large (grade 2) distal esophageal varices without evidence of active/recent bleeding. 3. Multiple small ulcerations seen along the greater curvature that were dark pigmented from blood, but again did not show any evidence of active/recent bleeding. 4. A 4 to 5 mm cratered ulceration seen in the prepyloric region with overlying adherent clot concerning for site of recent bleeding. This is intervened upon with submucosal injection of epinephrine and bipolar cauterization. 5. Small proximal esophagus hematomas without any evidence of recent bleeding. RECOMMENDATIONS: 1. We would continue to trend hemoglobin and hematocrit and transfuse as necessary to maintain hemoglobin and hematocrit of 7/21. 2. Continue to monitor clinically for signs of active GI bleeding. 3. Would continue octreotide for the next 24 hours given incomplete visualization of the gastric mucosa and possibility of gastric varices or very distal esophageal varices that were not seen during this examination. 4. Would continue PPI drip in light of active upper GI bleed. 5. Agree with antibiotic prophylaxis in light of the patient with probable cirrhosis with an upper GI bleed. 6. If the patient's hemoglobin and hematocrit continues to drop and require further blood support with transfusion, would consider repeat upper endoscopy for re-evaluation of the upper GI tract in hopes that the blood had cleared, so we can achieve better visualization. We will continue to follow. Please call with any questions. Job ID: [id number]
[2018-10-29] MEDS ORDERED: Sodium Bicarb 50 MEQ/50 ML Abboject 8.4% SYRINGE IVP SCH (00:45)
[2018-10-29] MEDS ORDERED: Sodium Bicarb 50 MEQ/50 ML VIAL IVP SCH (00:45)
[2018-10-29] MEDS ORDERED: Norepinephrine 8 MG/0.9% NS 250 ML ONE (01:10)
[2018-10-29 01:30] LABS: Hemoglobin 6.9 g/dL (14.0-18.0); Mean Corpuscular HGB CONC 35.1 g/dL (32.0-36.0); Mean Corpuscular Hemoglobin 31.4 pg (27.0-31.0); Mean Corpuscular Volume 89.5 fL (78.0-98.0); Mean Platelet Volume 7.9 fL (7.4-10.4); Platelet Count 190 thou/uL (130-400); RBC Distribution Width 20.7 % (11.5-14.5); White Blood Cell (WBC) Count 30.9 thou/uL (4.8-10.8)
[2018-10-29 01:57] LABS: Band 11 % (5-11); Hypochromia SLIGHT = 6-15 cells (100X) (0-5/hpf); Lymphocytes 3 % (21-51); MDiff Complete? YES; Monocytes 3 % (0-10); Neutrophil 83 % (42-75); PLT Morphology Comment Appears Adequate; Polychromasia SLIGHT = 2-3 cells (100X) (0-2/hpf)
[2018-10-29] MEDS: Pantoprazole 80 MG in Sodium Chloride 0.9% 100 ML IVP SCH ×2 (05:25→16:06)
[2018-10-29 05:42] LABS: Hemoglobin 9.2 g/dL (14.0-18.0); Mean Corpuscular HGB CONC 33.9 g/dL (32.0-36.0); Mean Corpuscular Hemoglobin 30.5 pg (27.0-31.0); Mean Platelet Volume 8.2 fL (7.4-10.4); Platelet Count 138 thou/uL (130-400); RBC Distribution Width 18.2 % (11.5-14.5); White Blood Cell (WBC) Count 24.9 thou/uL (4.8-10.8)
--- NOTE | 2018-10-29 05:58 | PDOC.FM ---
- Subjective Subjective: Patient is intubated and sedated this AM. Per nursing staff, patient does become responsive when sedation weaned down. Patient has not had great urine output. Nursing staff reports that since Transfusion protocol x3, she has been able to decrease his vasopressor support. No other history able to be obtained. - Objective MAR Reviewed: Yes Vital Signs & Weight: Vital Signs (12 hours) Temp Pulse Resp Pulse Ox 10/29/18 04:00 97.5 F L 28 H 10/29/18 02:31 99 10/29/18 02:00 97.5 F L 28 H 10/28/18 22:00 96.4 F L 10/28/18 21:40 100 10/28/18 21:35 28 H Weight Weight 112 kg Most Recent Monitor Data Heart Rate from ECG 97 NIBP 129/60 NIBP BP-Mean 83 Respiration from ECG 0 SpO2 100 I&O: 10/27/18 10/28/18 10/29/18 06:59 06:59 06:59 Intake Total 2660 Output Total 2080 Balance 580 Result Diagrams: 10/29/18 07:35 10/29/18 03:30 <Jomar Kirk - Last Filed: 10/29/18 09:14> - Objective Vital Signs & Weight: Vital Signs (12 hours) Temp Pulse Resp BP Pulse Ox 10/29/18 08:00 28 H 10/29/18 07:00 97.0 F L 10/29/18 06:56 94 116/51 L 10/29/18 06:00 28 H 10/29/18 05:00 97.5 F L 10/29/18 04:00 97.5 F L 28 H 10/29/18 02:31 99 10/29/18 02:00 97.5 F L 28 H 10/29/18 01:00 97.5 F L 10/29/18 00:00 97.5 F L 28 H 10/28/18 23:00 96.6 F L 10/28/18 22:00 96.4 F L 28 H 10/28/18 21:40 100 Weight Weight 112 kg Most Recent Monitor Data Heart Rate from ECG 118 NIBP 150/82 NIBP BP-Mean 104 Respiration from ECG 33 SpO2 93 I&O: 10/28/18 10/29/18 10/30/18 06:59 06:59 06:59 Intake Total 4297 0 Output Total 2135 82 Balance 2162 -82 Result Diagrams: 10/29/18 07:35 10/29/18 03:30 <Kareem Smith - Last Filed: 10/29/18 09:44> Phys Exam - Physical Examination intubated and sedated. scleral icteris, orbital/periorbital edema Neck: no nodes, no JVD ET tube in place Respiratory: no wheezing, clear to auscultation bilateral Cardiovascular: RRR, no significant murmur Gastrointestinal: soft, non-tender, no distention, positive bowel sounds Peritoneal fluid leak from paracentesis site present. Musculoskeletal: edema present 2+ up to level of thigh intubated and sedaated Deviation from normal: intubated and sedated. Skin: no rash Deviation from normal: Right Femoral Central Line small amount of bleeding present. <Jomar Kirk - Last Filed: 10/29/18 09:14> Dx/Plan (1) GI bleed Code(s): K92.2 - GASTROINTESTINAL HEMORRHAGE, UNSPECIFIED Status: Acute (2) H/O cardiac arrest Code(s): Z86.74 - PERSONAL HISTORY OF SUDDEN CARDIAC ARREST Status: Acute (3) Liver failure, acute Status: Acute (4) Shock liver Code(s): K72.00 - ACUTE AND SUBACUTE HEPATIC FAILURE WITHOUT COMA Status: Acute (5) Ascites due to alcoholic cirrhosis Code(s): K70.31 - ALCOHOLIC CIRRHOSIS OF LIVER WITH ASCITES Status: Acute (6) Lactic acidosis Code(s): E87.2 - ACIDOSIS Status: Acute (7) Fluid overload Code(s): E87.70 - FLUID OVERLOAD, UNSPECIFIED Status: Acute (8) Hepatic encephalopathy Code(s): K72.90 - HEPATIC FAILURE, UNSPECIFIED WITHOUT COMA Status: Acute (9) RAJENDRA (acute kidney injury) Code(s): N17.9 - ACUTE KIDNEY FAILURE, UNSPECIFIED Status: Acute (10) Hyperkalemia Code(s): E87.5 - HYPERKALEMIA Status: Acute (11) Hypertension Code(s): I10 - ESSENTIAL (PRIMARY) HYPERTENSION Status: Acute - Plan Plan: GI bleed with Cardiac Arrest s/p ROSC - s/p massive transfusion protocol, 12u pRBC given - Per GI continue goal of H&H of 7 & 21. - GI consulted, appreciate Dr. Iglesias recs - s/p EGD with intervention 10/28 - Grade 2 Varices and multiple ulcerations found - Continue Octreotide - Levophed currently at 20 mcg Sepsis with concern for SBP -Diagnostic Paracentesis 10/28/18- sent for stain and culture. - continue Rocephin 2g daily - Cultures pending - trend CBC Hyperkalemia - Potassium 5.2, no cardiac symptoms as of now. - insulin - Consider Kayexalate when GI status improves. - Will trend BMP Fluid Overload 2/2 Liver failure - Pt is overloaded but is not in respiratory distress and appears stable - Lasix 40mg IV daily -fluid restrict to 1500ml/day - GI consulted- Dr. Iglesias- follow recs. - monitor symptoms and physical exam - Consulted Nephrology, Appreciate Dr. Rosales's recs. Hepatic Encephalopathy - Currently intubated and sedated - Ammonia 100, likely due to digestion of blood in GI tract - Lactulose held due to GI findings - GI consulted Shock Liver - Likely secondary to GI bleed and underlying pathology - Trend LFTs Lactic Acidosis -Likely due to liver failure and not clearing. Could be due to SBP - Last check 13.8 - Will await cx. RAJENDRA - Likely due to recent events - Will consider Lasix dosing - Urine output less than 25ml/hr since admission - Nephrology consulted HTN - hx of htn, though pt is not hypertensive - hold home meds DM -continue home metformin -accuchecks AC/HS Disposition: Guarded, will continue current plan of care in ICU. <Jomar Kirk - Last Filed: 10/29/18 09:14> Attending Addendum - Attending Addendum Date/Time: 10/29/1839 I personally evaluated the patient and discussed the management with Dr. Kirk. I agree with the History, Examination, Assessment and Plan documented above with any addition or exceptions noted below. Patient more stable currently and continues on ventilator. He does have some spontaneous eye opening. Peak respiratory pressures continue to be elevated likely 2/2 the massive abdominal ascites putting pressure on his chest. GI hopes for therapeutic drainage in the coming days but would like for him to be more stable at this time. His H/H is at goal at this time after we hopefully stopped the bleeding from his gastric ulcer with EGD overnight. He continues to have oozing from his cordis catheter site that slows with pressure. Anticipate this is largely due to coagulopathy. Coags improved with FFP and Cryo. Will continue to transfuse to maintain h/h greater than 7. His BP is improved and Levophed has been weaned down some. Continues to have minimal urine output despite adequate perfusion at this time. Consider ATN that occurred during his cardiac arrest. Nephro consult made. Will need to monitor potassium balance. Patient also appears to have shock liver at this time likely 2/2 cardiac arrest that will complicate any recovery from his liver failure. GI on board. Continue Rocephin and await cultures, no high suspicion for sepsis at this time, SBP ruled out with cell counts. Prognosis guarded, patient critical. 60 minutes CC time on 10/29. <Kareem Smith - Last Filed: 10/29/18 09:44>
[2018-10-29 05:59] LABS: Band 4 % (5-11); Hypochromia SLIGHT = 6-15 cells (100X) (0-5/hpf); Lymphocytes 4 % (21-51); MDiff Complete? YES; Monocytes 5 % (0-10); Neutrophil 87 % (42-75); PLT Morphology Comment Appears Adequate
[2018-10-29 06:00] LABS: ALT (SGPT) 1388 U/L (8-55); Albumin 2.8 g/dL (3.5-5.0); Alkaline Phosphatase 127 U/L (40-150); Anion Gap 29 mmol/L (10-20); BUN (Urea Nitrogen) 55 mg/dL (8.9-20.6); Bilirubin, Total 7.1 mg/dL (0.2-1.2); Calc. Creatinine Clearance 76 mL/min (70-130); Calcium 8.1 mg/dL (7.8-10.44); Carbon Dioxide 17 mmol/L (22-29); Chloride 95 mmol/L (98-107); Estimated GFR-MDRD 36; Globulin 2.4 g/dL (2.4-3.5); Glucose 166 mg/dL (70-105); Potassium 5.7 mmol/L (3.5-5.1); Protein, Total 5.2 g/dL (6.0-8.3); Sodium 135 mmol/L (136-145)
[2018-10-29 06:06] LABS: AST (SGOT) Greater than 3500 U/L (5-34)
[2018-10-29 06:13] LABS: Lactic Acid 13.8 mmol/L (0.5-2.2)
[2018-10-29] MEDS: Norepinephrine 16 MG in Dextrose 5% in Water 234 ML IVPB PRN ×2 (06:56→21:17)
--- NOTE | 2018-10-29 07:08 | HP ---
ADDENDUM: Please see the history and physical done by Dr. Jauregui and Dr. Chavarria, for which I agree. The patient was seen, evaluated, examined, and discussed with the residents. HISTORY OF PRESENT ILLNESS: This is a 38-year-old gentleman who sounds like was a heavy vodka drinker who in the last about 6 weeks stopped drinking. In the spring, had iron-deficiency anemia and saw GI, was scoped and according to the patient, they did not really find anything, but then in the last few weeks basically developed anasarca. He did stop drinking, was seen in the emergency room on the , was given spironolactone and was sent out and saw his primary care as well as GI this last week. He was scheduled for a CT of the abdomen and paracentesis this upcoming week, but the swelling worsened and scrotal edema, abdominal girth increased, and pedal edema and a little bit of shortness of breath as well and somewhat decreased mentation, maybe little bit of confusion from hepatic encephalopathy. Past medical history, past surgical history, mediations, social per the resident history and physical for which I agree. PHYSICAL EXAMINATION: VITAL SIGNS: Blood pressure 90s/60s, pulse rate in the 80s to 90s. GENERAL: Slightly confused, clearly icteric. He is alert and oriented x3, maybe is a little bit slow in thinking processes. HEENT: Otherwise, ENT slightly pale conjunctivae. CHEST: Clear, although not taking extremely deep breath. CARDIOVASCULAR: Regular rate and rhythm. He does have grade 2/6 to 3/6 systolic murmur, which apparently is chronic. ABDOMEN: Has ascites, distended. Paracentesis site is draining straw-colored fluid. Does have scrotal edema and slight irritation in the skin and also 3+ pitting edema to 4+ pitting edema in the lower extremities. LABORATORY DATA: Significant for potassium being high at 5.8, sodium low at 124, glucose 194. White count was elevated at 19.6, hemoglobin is down to 8.7, which is little bit decreased from a week ago. The white count elevation is definitely new though. INR is 2.0. ASSESSMENT: Anasarca from liver damage and cirrhosis likely all from alcoholism, damage from alcohol abuse. PLAN: IV Lasix. We can hold the spironolactone while the potassium is high. We will put him on sliding scale, which will also help with the potassium. The main thing is we have to get this fluid off him. Certainly, if breathing worsens, may end up having do more of a therapeutic paracentesis. GI will be consulted. Hemoglobin is low, but there is no reason to assume active bleeding currently. Certainly, we will treat diabetes with sliding scale here and states he has not drank any alcohol in a while, so no reason to be concerned with withdrawals or those kind of issues. We will follow chemistries and obviously work on diuresing him. Job ID: [id number]
--- NOTE | 2018-10-29 07:23 | CON ---
DATE OF CONSULTATION: 10/28/2018 HISTORY OF PRESENT ILLNESS: Jose Cardenas is an unfortunate 38-year-old male, who presented to the emergency department this morning with altered mental status. Apparently, he has not improved throughout the day and eventually had a cardiac arrest. I am told it took 30 minutes to resuscitate him. He has a recent diagnosis of cirrhosis, felt to be related to alcohol. He had significant bleeding and received, I believe, 6 units of blood in the emergency department. He is tentatively going to endoscopy shortly. I examined him about 30 minutes while in the emergency department. PAST MEDICAL HISTORY: Significant for diabetes and hypertension. SOCIAL HISTORY: Apparently, he was a heavy drinker. He is a former smoker, former drug user. REVIEW OF SYSTEMS: Not obtainable. PHYSICAL EXAMINATION: GENERAL: He has femoral central line. VITAL SIGNS: His blood pressure in the emergency department was about 100s systolic. He has sinus tachycardia. HEENT: He is orally intubated. He had a gastric tube in place with a dark red blood in it. NECK: Supple. LUNGS: Clear. HEART: Regular rhythm. ABDOMEN: Distended with ascites. EXTREMITIES: Edematous. LABORATORY DATA: White count 31.6, hemoglobin 7.9, platelets 202, and MCV is 101. His INR is 2.4. PH is 6.98, repeat blood gas 7.36, CO2 of 30, pO2 of 134. Sodium 134, potassium 5.1, chloride 97, bicarbonate 14, BUN 57, creatinine 1.78. AST is 1096, ALT is 451, alkaline phosphatase 152, bilirubin is 7.1, and albumin is 2.1. IMPRESSION: 1. Status post cardiorespiratory arrest. 2. Hepatic encephalopathy on presentation. 3. Gastrointestinal bleeding. 4. Acute on chronic kidney disease. 5. 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 6. Severe metabolic acidosis after his code. It is debatable whether or not he can survive this. He is going down for endoscopy. We will get a blood gas after endoscopy. TIME SPENT: Critical care time 30 minutes. Job ID: [id number] MTDD
[2018-10-29 07:24] LABS: Actual Bicarbonate (HCO3a) 17.2 mEq/L (22-28); Base Excess (BEa) -6.4 mEq/L (-2.0 to +3.0); CO2 Tension 28.1 mmHg (35.0-45.0); Calcium, Ionized 0.91 mmol/L (1.12-1.30); O2 Tension (PaO2) 63.5 mmHg (80.0-100.0); Potassium - ABG Lab 5.48 mmol/L (3.70-5.30)
[2018-10-29 07:25] LABS: ALV-art Gradient 364.825 (0-20); Puncture Site LRA
[2018-10-29 08:09] LABS: INR-International Normal Ratio 2.1; PTT 44.4 SEC (22.9-36.1); Prothrombin Time 23.4 SEC (12.0-14.7)
[2018-10-29 08:49] LABS: Anisocytosis SLIGHT = 6-15 cells (100X) (0-5/hpf); Band 16 % (5-11); Hemoglobin 9.1 g/dL (14.0-18.0); Lymphocytes 2 % (21-51); MDiff Complete? YES; Mean Corpuscular Hemoglobin 30.3 pg (27.0-31.0); Mean Corpuscular Volume 89.3 fL (78.0-98.0); Mean Platelet Volume 8.3 fL (7.4-10.4); Monocytes 2 % (0-10); Neutrophil 80 % (42-75); PLT Morphology Comment Appears Decreased; Platelet Count 128 thou/uL (130-400); Poikilocytosis SLIGHT = 6-15 cells (100X) (0-5/hpf); RBC Distribution Width 18.4 % (11.5-14.5); White Blood Cell (WBC) Count 22.7 thou/uL (4.8-10.8)
[2018-10-29] MEDS ORDERED: Furosemide 40 MG/4 ML VIAL SLOW IVP SCH (09:00)
[2018-10-29] MEDS ORDERED: Multivit, Therapeutic 1 TAB PO SCH (09:00)
[2018-10-29] MEDS ORDERED: Pantoprazole 40 MG VIAL IVP SCH (09:00)
[2018-10-29] MEDS: Ferrous Sulfate 325 MG TAB PO SCH (09:43)
[2018-10-29 12:12] LABS: Anisocytosis SLIGHT = 6-15 cells (100X) (0-5/hpf); Band 16 % (5-11); Elliptocytes SLIGHT = 2-5 cells (100X) (0-1/hpf); Lymphocytes 3 % (21-51); MDiff Complete? YES; Mean Corpuscular HGB CONC 33.7 g/dL (32.0-36.0); Mean Corpuscular Hemoglobin 30.3 pg (27.0-31.0); Mean Corpuscular Volume 89.9 fL (78.0-98.0); Mean Platelet Volume 8.7 fL (7.4-10.4); Monocytes 5 % (0-10); Neutrophil 76 % (42-75); PLT Morphology Comment Appears Adequate; Platelet Count 144 thou/uL (130-400); Poikilocytosis SLIGHT = 6-15 cells (100X) (0-5/hpf); RBC Distribution Width 18.6 % (11.5-14.5); Red Blood Cell (RBC) Count 2.97 mill/uL (4.70-6.10); Tear Drops SLIGHT = 2-5 cells (100X) (0-1/hpf); White Blood Cell (WBC) Count 26.3 thou/uL (4.8-10.8)
[2018-10-29 12:38] LABS: Actual Bicarbonate (HCO3a) 24.8 mEq/L (22-28); Base Excess (BEa) -2.8 mEq/L (-2.0 to +3.0); CO2 Tension 58.9 mmHg (35.0-45.0); Calcium, Ionized 0.98 mmol/L (1.12-1.30); Carboxyhemoglobin (COHb) 0.5 gm% (0.0-3.0); O2 Tension (PaO2) 85.7 mmHg (80.0-100.0); Potassium - ABG Lab 5.52 mmol/L (3.70-5.30)
[2018-10-29 12:39] LABS: ALV-art Gradient 553.675 (0-20); Puncture Site LRA; pH, Arterial 7.24 (7.35-7.45)
[2018-10-29 13:00] LABS: Hemoglobin 8.9 g/dL (14.0-18.0); Mean Corpuscular HGB CONC 34.4 g/dL (32.0-36.0); Mean Corpuscular Hemoglobin 30.8 pg (27.0-31.0); Mean Corpuscular Volume 89.8 fL (78.0-98.0); Mean Platelet Volume 8.5 fL (7.4-10.4); Platelet Count 144 thou/uL (130-400); RBC Distribution Width 18.5 % (11.5-14.5); Red Blood Cell (RBC) Count 2.89 mill/uL (4.70-6.10); White Blood Cell (WBC) Count 27.2 thou/uL (4.8-10.8)
[2018-10-29 13:09] LABS: Anion Gap 25 mmol/L (10-20); BUN (Urea Nitrogen) 58 mg/dL (8.9-20.6); Calc. Creatinine Clearance 68 mL/min (70-130); Calcium 7.9 mg/dL (7.8-10.44); Carbon Dioxide 22 mmol/L (22-29); Chloride 94 mmol/L (98-107); Estimated GFR-MDRD 31; Glucose 191 mg/dL (70-105); Potassium 5.8 mmol/L (3.5-5.1); Sodium 135 mmol/L (136-145)
[2018-10-29 13:23] LABS: Anisocytosis SLIGHT = 6-15 cells (100X) (0-5/hpf); Band 15 % (5-11); Lymphocytes 7 % (21-51); MDiff Complete? YES; Monocytes 2 % (0-10); Neutrophil 76 % (42-75); PLT Morphology Comment Appears Adequate; Polychromasia SLIGHT = 2-3 cells (100X) (0-2/hpf)
[2018-10-29] MEDS: cefTRIAXone\\ROCEPHIN 2 GM in Sodium Chloride 0.9% 100 ML IVPB SCH (13:26)
--- NOTE | 2018-10-29 13:32 | PRG ---
DATE OF SERVICE: 10/29/2018 SUBJECTIVE: Jose Cardenas appears to clinically stop bleeding. His hemodynamics stabilized. His blood pressure is 92/52, heart rate , respiratory rate is per mechanical ventilation. We decreased his tidal volume and decreased his rate to create a little permissive hypercapnia to minimize his plateau pressures. At the current settings, we have his plateau pressures down to 30. They were 35 to 36 this morning. OBJECTIVE: LUNGS: Clear. HEART: Regular rhythm. ABDOMEN: Massively distended. EXTREMITIES: Without asymmetry. LABORATORY DATA: White count 24.9, hemoglobin 9.2, and platelets 138,000. Sodium 135, potassium 5.7, chloride 95, bicarb 17, BUN 55, creatinine 2.09. PH 7.4, CO2 of 28, PO2 of 63. IMPRESSION: Status post presentation with hepatic encephalopathy, which led to paracentesis, and later during the day, a cardiorespiratory arrest. He had 30 minutes of CPR. It is unclear whether or not there will be significant hypoperfusion/anoxic injury. He has also had a massive gastrointestinal bleed that required emergent EGD and epinephrine injection as well as bipolar cautery, the ulcerations were seen on endoscopy. It was not felt that the varices were bleeding according to the operative note, which I have just reviewed. He will remain mechanically ventilated. I met with family and answered all their questions. Critical care time 30 minutes. Job ID: [id number] MTDD
[2018-10-29 13:35] LABS: ALT (SGPT) 2742 U/L (8-55); Albumin 2.7 g/dL (3.5-5.0); Alkaline Phosphatase 204 U/L (40-150); Anion Gap 24 mmol/L (10-20); BUN (Urea Nitrogen) 58 mg/dL (8.9-20.6); Bilirubin, Total 8.9 mg/dL (0.2-1.2); Calc. Creatinine Clearance 67 mL/min (70-130); Calcium 7.8 mg/dL (7.8-10.44); Carbon Dioxide 22 mmol/L (22-29); Chloride 94 mmol/L (98-107); Estimated GFR-MDRD 31; Globulin 2.3 g/dL (2.4-3.5); Glucose 192 mg/dL (70-105); Potassium 5.8 mmol/L (3.5-5.1); Sodium 134 mmol/L (136-145)
[2018-10-29 13:47] LABS: AST (SGOT) Greater than 3500 U/L (5-34)
--- NOTE | 2018-10-29 14:05 | PRG ---
DATE OF SERVICE: 10/29/2018 REASON FOR CONSULTATION: Hematemesis, cirrhosis, ascites, and hepatic encephalopathy. SUBJECTIVE: The patient was admitted to the hospital yesterday evening with complaints of altered mental status. He subsequently had hematemesis after acute hypoxic respiratory failure. He subsequently underwent CPR for approximately 30 minutes before return of spontaneous circulation. He underwent EGD last night for evaluation of the upper GI tract, which showed large (grade 2) esophageal varices, that were not bleeding nor had any high-risk stigmata of active/recent bleeding; however, he did have a large amount of blood within the stomach interfering with visualization as well as multiple small ulcerations within the gastric body. A 4- to 5-mm ulceration was seen in the prepyloric region, that did have an adherent clot overlying it consistent with a recent GI bleed. This was intervened upon with bipolar cautery. Today, the patient is doing better with normotensive or hypertensive blood pressures. He continues to remain tachycardic, but is still intubated with mild sedation on board; however, the sedation medications were being taken off to evaluate his current mental status. OBJECTIVE: VITAL SIGNS: Temperature 97, pulse 113, blood pressure 147/61, respiratory rate 27, and saturating 95% on mechanical ventilation. GENERAL: The patient is intubated with some spontaneous movements, but nonpurposeful movements. CARDIOVASCULAR: Tachycardic rate, but regular rhythm. RESPIRATORY: Coarse breath sounds heard in all lung varela consistent with mechanical ventilation. ABDOMEN: Hypoactive bowel sounds. Mildly tense to palpation. Significant abdominal distention with minimal oozing of fluids along the left lower quadrant from paracentesis obtained yesterday. No grimacing to palpation. EXTREMITIES: Bilateral lower extremity edema of approximately 2+/3+ extending up to mid thigh. LABORATORY DATA: CBC with a white blood cell count of 24.9, hemoglobin 9.2, hematocrit 27, and platelets 138. INR 2.1. Chemistry with a sodium of 135, potassium 5.7, chloride 95, CO2 of 17, BUN 55, creatinine 2.09, and glucose 166. AST greater than 3500, ALT 1388, alkaline phosphatase 127, and total bilirubin 7.1. IMAGING DATA: EGD was performed on October 28, 2018, with the findings of large nonbleeding esophageal varices in the distal esophagus. A large amount of blood within the proximal stomach precluding visualization as well as multiple ulcerations within the gastric body and antrum with the antral ulcer with an overlying adherent clot consistent with a recent GI bleed. ASSESSMENT AND PLAN: The patient is a 38-year-old male with past medical history of hypertension, diabetes, a new diagnosis complicated by ascites, hepatic encephalopathy, and now esophageal varices, presenting with hematemesis and altered mental status. 1. Hematemesis/upper gastrointestinal bleed. The patient presented with progressive worsening of altered mental status over the last 48 to 72 hours prior to admission. On admission, he was noted to be mildly anemic, which was a change from baseline. He experienced acute hypoxic respiratory failure and underwent CPR in order to resuscitate with resuscitation successful after approximately 30 minutes. However, during the resuscitation, he was noted to have a significant amount of blood in his mouth concerning for an upper gastrointestinal bleed. He underwent upper endoscopy on October 28, 2018, with the findings of large (grade 2) nonbleeding esophageal varices seen in the distal esophagus. There was also a large amount of blood seen within the stomach with the proximal stomach unable to be visualized as a result. However, he had the small 1- to 2-mm superficial ulcerations seen within the greater curvature of the stomach as well as a 4-to 5-mm ulceration in the prepyloric region, that did have an adherent clot consistent with a recent gastrointestinal bleed. At this point, the more likely reason for the gastrointestinal bleed would have been the ulceration within the antrum, although a bleeding source within the proximal stomach cannot be ruled out at this time. His H and H have responded appropriately to massive infusion of PRBCs. Recommendations: a. We would continue to trend H and H and transfuse as necessary to maintain H and H of 7 and 21. b. Continue to monitor clinically for signs of gastrointestinal bleeding. c. Continue PPI drip given the presence of a gastric ulcer with probable bleeding source. d. We will continue octreotide drip for approximately 24 more hours given the possibility of a varix bleed, but less likely at this time (unable to say with certainty due to inadequate visualization of the distal esophagus and stomach). 2. Cirrhosis. The patient presented with fairly acute onset of increased abdominal distention approximately 3 weeks ago, that prompted evaluation at the [facility]. He was subsequently diagnosed with cirrhosis at that time with followup in the GI Clinic shortly thereafter. At this time, his platelet count had been normal with only possible cirrhotic morphology on imaging and the presence of ascites. Paracentesis obtained yesterday was not consistent with spontaneous bacterial peritonitis, but cultures are pending at this time. Further characterization with a fluid albumin is still pending at this time as well. Given his sudden decompensation and liver disease with massive amount of ascites, there is a strong concern for other underlying pathology including Budd-Chiari syndrome or significant portal vein thrombosis generating portal hypertension resulting in ascites and varix formation. At this point, the most likely reason for cirrhosis of the liver would be his chronic alcohol abuse. Recommendations: 3. a. Continue further stabilization of the patient's clinical status. b. We would attempt to obtain a CT of the abdomen and pelvis with contrast in order to evaluate for Budd-Chiari versus possible hepatocellular carcinoma versus cirrhotic morphology on CT scan, hopefully within the next 24 hours. c. We will follow up on the paracentesis fluid to help determine SAAG ratio, that will help further to guide therapy. 4. Hepatic encephalopathy. The patient presented with [id number] change in the mental status over the last few days, characterizes slurring of speech, memory loss, and increased somnolence by sleeping during most of the day. At this point, it is difficult to tell if this was due to possible upper gastrointestinal bleed introducing an increased ammonia load within the gastrointestinal system or worsening of his liver dysfunction. Given stabilization of his bleeding at this time, I think treating for possible worsening liver function and resultant hepatic encephalopathy would be prudent given his modestly elevated ammonia, but again, this could be elevated due to gastrointestinal blood loss. Recommendations: a. We would start the patient on lactulose, but given lack of oral access, we would consider lactulose enemas 3 times daily. b. We would avoid any unnecessary use of sedation or mind-altering medications. 5. Transaminitis. The patient is presenting with a mild transaminitis initially on admission, which could have been due to his chronic alcohol abuse given its 2:1 distribution of AST to ALT; however, this morning, his AST is greater than 3000 and his ALT is greater than 1300, which are indicative of increased inflammation within the liver, most likely due to his hypotension and circulatory arrest generating ischemia within the liver and presenting in a primary hepatocellular distribution. Recommendations: a. We would continue to monitor LFTs daily for signs of resolution in the post code period. We will continue to follow. Please call with any questions. Job ID: [id number]
[2018-10-29] MEDS: Albumin 25% 25 GM/100 ML BOT IVPB SCH ×3 (14:46→21:19)
[2018-10-29] MEDS: Lactulose 10 GM/15 ML Oral Solution PR SCH ×2 (14:59→21:19)
[2018-10-29 15:45] LABS: HBSAB Concentration 0.87 mIU/mL; HBSAg Index 0.23 S/CO (0-0.99); Hep B Core Total Ab Non-Reactive (NonReactive); Hep B Core Total Index 0.13 S/CO (0-0.79); Hep B Surf AB Non-Reactive (NonReactive); Hep B Surf Ag Non-Reactive S/CO (NonReactive); Hep C IgG Ab Non-Reactive (NonReactive); Hep C Index 0.07 S/CO (0-0.79)
[2018-10-29] MEDS ORDERED: Sodium Chloride 0.9% 1,000 ML IV SCH (15:45)
--- NOTE | 2018-10-29 17:51 | ULT ---
ULTRASOUND PARACENTESIS WITH IMAGING: HISTORY: Therapeutic large volume paracentesis. COMPARISON: None. FINDINGS: There is no significant fluid in the right lower quadrant, in the midline. There is small volume flu id in the left lower quadrant of the abdomen, although not enough for a paracentesis. The radiologis t went to the bedside, in real-time, to evaluate this small pocket of fluid. The patient's abdomen w as hard, although this was due to extensive third spacing of fluids in the interstitial soft tissues. IMPRESSION: Very small volume fluid, only in the left lower quadrant of the abdomen, which does not qualify for p aracentesis. The patient's tense abdomen is sequela of underlying third spacing of fluid. POS: [facility]
--- NOTE | 2018-10-29 18:06 | ULT ---
ULTRASOUND RETROPERITONEUM COMPLETE: (RENAL) HISTORY: A 38-year-old male with acute kidney injury. FINDINGS: There is a small to moderate amount of free fluid in the Jaramillo pouch, and surrounding bowel loops inferior to the right kidney. The left kidney is very poor visualized due to partial obscuring by sh adowing from bowel gas. The right kidney measures 10.5 x 5.5 x 6.5 cm. The left kidney measures 12.5 x 7.5 x 5.5 cm. No hydronephrosis bilaterally. The bladder is in accessible to visualization due to numerous colostomy bags, according to the remarketing rep. IMPRESSION: 1. No hydronephrosis. 2. Ascites. JN R POS: [facility]
[2018-10-29 18:57] LABS: Hemoglobin 8.6 g/dL (14.0-18.0); Mean Corpuscular HGB CONC 33.6 g/dL (32.0-36.0); Mean Corpuscular Hemoglobin 30.1 pg (27.0-31.0); Mean Corpuscular Volume 89.6 fL (78.0-98.0); Mean Platelet Volume 8.3 fL (7.4-10.4); Platelet Count 125 thou/uL (130-400); RBC Distribution Width 18.6 % (11.5-14.5); Red Blood Cell (RBC) Count 2.85 mill/uL (4.70-6.10); White Blood Cell (WBC) Count 23.3 thou/uL (4.8-10.8)
[2018-10-29 19:08] LABS: ALT (SGPT) 3293 U/L (8-55); Albumin 3.3 g/dL (3.5-5.0); Alkaline Phosphatase 261 U/L (40-150); Anion Gap 20 mmol/L (10-20); BUN (Urea Nitrogen) 34 mg/dL (8.9-20.6); Bilirubin, Total 9.7 mg/dL (0.2-1.2); Calc. Creatinine Clearance 98 mL/min (70-130); Calcium 8.2 mg/dL (7.8-10.44); Carbon Dioxide 25 mmol/L (22-29); Chloride 96 mmol/L (98-107); Estimated GFR-MDRD 48; Globulin 2.2 g/dL (2.4-3.5); Glucose 128 mg/dL (70-105); Potassium 4.3 mmol/L (3.5-5.1); Protein, Total 5.5 g/dL (6.0-8.3); Sodium 137 mmol/L (136-145)
[2018-10-29 19:09] LABS: Anisocytosis SLIGHT = 6-15 cells (100X) (0-5/hpf); Band 25 % (5-11); Lymphocytes 1 % (21-51); MDiff Complete? YES; Monocytes 5 % (0-10); Neutrophil 69 % (42-75); Ovalocytes SLIGHT = 2-5 cells (100X) (0-1/hpf); PLT Morphology Comment Appears Decreased; Polychromasia SLIGHT = 2-3 cells (100X) (0-2/hpf)
[2018-10-29 19:12] LABS: AST (SGOT) Greater than 3500 U/L (5-34)
--- NOTE | 2018-10-29 19:42 | CON ---
DATE OF CONSULTATION: REASON FOR CONSULTATION: Elevated creatinine and hyperkalemia. HISTORY OF PRESENT ILLNESS: This is a very pleasant 38-year-old gentleman, being presented to the hospital on October 28. The patient had history of alcohol abuse. The patient presented with confusion. The patient had cardiorespiratory failure and was intubated. The patient had a creatinine of 1.1 yesterday, which increased to 2.3. The patient is anuric, so I was consulted. The patient can give no further history. He is intubated. PAST MEDICAL HISTORY: Hypertension, diabetes mellitus, anemia, history of alcohol use. MEDICATIONS: Home medications list reviewed. Hospital medications list reviewed. ALLERGIES: REVIEWED. SOCIAL HISTORY: Chronic alcohol abuse. REVIEW OF SYSTEMS: Unobtainable. PHYSICAL EXAMINATION: GENERAL: The patient is resting well. VITAL SIGNS: Afebrile, pulse 100, breathing is 16, blood pressure 126/46 on pressor. GENERAL APPEARANCE AND MENTAL STATUS: Fair HEAD/NECK: Normocephalic. Atraumatic. EYES: EOMI. No deformity. EARS: Clear. No ulcers. NOSE: Intact. No lesions. MOUTH: Clear. No discharge. THROAT: Clear. No exudate. LUNGS: Clear. No crackles. CARDIAC: S1, S2. No rub. ABDOMEN: Benign. Bowel sounds positive. GENITALIA/RECTUM: Hightower absent. BACK/EXTREMITIES: Edema 0+. NEUROLOGICAL: Alert and motor intact. ASSESSMENT AND PLAN: 1. Acute kidney injury with chronic kidney disease, multifactorial, could be sepsis versus other GI, cardiac, or vascular etiology. We will plan dialysis. The risks versus benefits were discussed. 2. Anemia, stable. 3. Hyperkalemia. 4. Metabolic acidosis. PLAN: Dialysis. The above findings were discussed with the patient family member and primary team. Job ID: [id number]
[2018-10-29] MEDS ORDERED: Octreotide Acetate 1,250 MCG in Sodium Chloride 0.9% 250 ML 250 ML IVPB SCH (19:45)
[2018-10-29] MEDS: fentaNYL Citrate/PF 2,000 MCG in Sodium Chloride 0.9% 60 ML IV SCH (20:25)
[2018-10-29 23:00] LABS: ALT (SGPT) 3263 U/L (8-55); Albumin 3.4 g/dL (3.5-5.0); Alkaline Phosphatase 307 U/L (40-150); Anion Gap 21 mmol/L (10-20); BUN (Urea Nitrogen) 39 mg/dL (8.9-20.6); Bilirubin, Total 9.7 mg/dL (0.2-1.2); Calc. Creatinine Clearance 76 mL/min (70-130); Calcium 8.2 mg/dL (7.8-10.44); Carbon Dioxide 25 mmol/L (22-29); Chloride 96 mmol/L (98-107); Estimated GFR-MDRD 36; Glucose 126 mg/dL (70-105); Potassium 4.7 mmol/L (3.5-5.1); Protein, Total 5.4 g/dL (6.0-8.3); Sodium 137 mmol/L (136-145)
[2018-10-29 23:04] LABS: Band 33 % (5-11); Hemoglobin 8.2 g/dL (14.0-18.0); Lymphocytes 2 % (21-51); MDiff Complete? YES; Mean Corpuscular HGB CONC 34.1 g/dL (32.0-36.0); Mean Corpuscular Hemoglobin 30.6 pg (27.0-31.0); Mean Corpuscular Volume 89.9 fL (78.0-98.0); Mean Platelet Volume 8.5 fL (7.4-10.4); Monocytes 4 % (0-10); Neutrophil 61 % (42-75); Nucleated RBC 1 % (0); PLT Morphology Comment Appears Decreased; Platelet Count 97 thou/uL (130-400); RBC Distribution Width 18.7 % (11.5-14.5); Red Blood Cell (RBC) Count 2.69 mill/uL (4.70-6.10); White Blood Cell (WBC) Count 20.4 thou/uL (4.8-10.8)
[2018-10-29 23:16] LABS: AST (SGOT) Greater than 3500 U/L (5-34)
[2018-10-30] MEDS: Albumin 25% 25 GM/100 ML BOT IVPB SCH ×3 (02:55→15:19)
--- NOTE | 2018-10-30 03:55 | HP ---
HISTORY OF PRESENT ILLNESS: Jose Cardenas is a 38-year-old male with history of alcoholism, cirrhosis, and ascites, presented to this hospitalization. In the emergency room he suffered respiratory arrest, required 30 minutes of CPR, required intubation and critical care. Dr. Sarmiento has been following him. He was severely acidotic. He was treated. He has acute renal failure. Dr. Rosales has asked me to put a dialysis catheter. His potassium is 5.7 and he is receiving frequent bicarbonate and he is becoming more oliguric. On presentation, an NG tube was placed and he had varicocele bleeding, required banding by Dr. Reyes. The patient reportedly quit drinking alcohol a few weeks ago. He is intubated and sedated. His family is not currently present. He is on vasopressors. He has a Cordis line in his right groin. He has antecubital line in his right arm. PAST MEDICAL HISTORY: Alcoholism, ascites, cirrhosis, diabetes, and obesity. PAST SURGICAL HISTORY: None. SOCIAL HISTORY: Tobacco use in the past. Cocaine use in the past. MEDICATIONS: As outpatient; 1. Amlodipine. 2. Aspirin. 3. Ferrous sulfate. 4. Furosemide. 5. Lisinopril. 6. Spironolactone. 7. Metformin. PHYSICAL EXAMINATION: VITAL SIGNS: Height 5 feet and 8 inches, weight 146 pounds. HEAD, EARS, EYES, NOSE, AND THROAT: Unremarkable. LUNGS: Clear to auscultation. CARDIAC: Regular rate and rhythm without murmur or gallop. ABDOMEN: Soft, distended, firm. Positive fluid wave bag over his lower abdomen controlling the ascites leak from past paracentesis. Right groin Cordis line. Right antecubital IV. EXTREMITIES: Edematous. LABORATORY DATA: PH of 7.24, pCO2 of 58, and bicarb 24.8. PT 23, INR 2.1, and PTT 44. Hemoglobin 9.0, has been as low as 7.9 and has required multiple blood transfusions. Sodium 135, potassium 5.8, chloride , BUN 58, creatinine GFR 31. Bilirubin 8.9 and albumin 2.2 yesterday, 2.7 today. ASSESSMENT AND PLAN: 1. Acute renal failure, oliguric, hyperkalemia, acidotic. Plan, placement of urgent hemodialysis catheter, left groin. Later today, we will plan a central line, internal jugular, ultrasound-guided. 2. Coagulopathy. 3. Ascites. 4. Cirrhosis. 5. Varicocele banding performed this hospitalization. 6. Respiratory arrest, respiratory failure, ventilatory dependent. 7. Hepatic encephalopathy. reports change in mental status over he last few days prior to admission. 8. Dr. Rosales is concerned about ischemic bowel. I think this is probably unlikely, but are not totally excluded. However, his operative risk is prohibitively high at this point and surgery or imaging is not possible at this point. Job ID: [id number]
[2018-10-30 04:15] LABS: #Lymphocytes 0.8 thou/uL (1.20-3.40); #Monocytes 2.1 thou/uL (0.11-0.59); #Neutrophils 13.6 thou/uL (1.40-6.50); %Basophils 0.2 % (0.0-1.0); %Eosinophils 0.2 % (0.0-10.0); %Lymphocytes 4.7 % (21.0-51.0); %Monocytes 12.4 % (0.0-10.0); %Neutrophils 82.5 % (42.0-75.0); Hemoglobin 7.8 g/dL (14.0-18.0); Mean Corpuscular HGB CONC 34.5 g/dL (32.0-36.0); Mean Corpuscular Hemoglobin 31.4 pg (27.0-31.0); Mean Platelet Volume 8.4 fL (7.4-10.4); Platelet Count 78 thou/uL (130-400); RBC Distribution Width 18.7 % (11.5-14.5); Red Blood Cell (RBC) Count 2.47 mill/uL (4.70-6.10); White Blood Cell (WBC) Count 16.5 thou/uL (4.8-10.8)
--- NOTE | 2018-10-30 06:09 | PDOC.FM ---
- Subjective Subjective: 38 yo male seen at bedside this AM. Patient is critically ill. Patient is intubated and sedated. Nursing staff reports no acute changes overnight. Nurse reports that he has slugglish pupillary reflexes bilaterally, but no other response to stimuli. No other history is able to be obtained. - Objective MAR Reviewed: Yes Vital Signs & Weight: Vital Signs (12 hours) Temp Resp Pulse Ox 10/30/18 04:00 98.4 F 24 H 10/30/18 00:00 98.5 F 23 H 10/29/18 22:00 25 H 10/29/18 20:00 98.3 F 27 H 94 L Weight Admit Weight 111.584 kg Weight 112 kg Most Recent Monitor Data Heart Rate from ECG 98 NIBP 103/33 NIBP BP-Mean 56 Respiration from ECG 20 SpO2 90 I&O: 10/28/18 10/29/18 10/30/18 06:59 06:59 06:59 Intake Total 4297 3038.7 Output Total 2135 1051 Balance 2162 1987.7 Result Diagrams: 10/30/18 03:59 10/29/18 22:26 <Jomar Kirk - Last Filed: 10/30/18 08:17> - Objective Vital Signs & Weight: Vital Signs (12 hours) Temp Pulse Resp BP Pulse Ox 10/30/18 08:25 97 118/43 L 10/30/18 08:00 98.3 F 20 89 L 10/30/18 06:42 97 103/35 L 10/30/18 04:00 98.4 F 24 H 10/30/18 00:00 98.5 F 23 H 10/29/18 22:00 25 H Weight Admit Weight 111.584 kg Weight 112 kg Most Recent Monitor Data Heart Rate from ECG 94 NIBP 106/55 NIBP BP-Mean 72 Respiration from ECG 20 SpO2 89 I&O: 10/29/18 10/30/18 10/31/18 06:59 06:59 06:59 Intake Total 4297 3083.9 52.5 Output Total 2135 1051 0 Balance 2162 2032.9 52.5 Result Diagrams: 10/30/18 09:00 10/30/18 09:00 <Kareem Smith - Last Filed: 10/30/18 09:56> Phys Exam - Physical Examination Intubated and sedated ET tube in place. Sluggish pupils bilaterally Respiratory: no wheezing, clear to auscultation bilateral Cardiovascular: RRR 2/6 systolic murmur present left sternal border Distended. Paracentesis area continues to drain Musculoskeletal: edema present 3+ bilaterally as well as his upper extremities intubated and sedated Deviation from normal: intubated and sedated <Jomar Kirk - Last Filed: 10/30/18 08:17> Dx/Plan (1) GI bleed Code(s): K92.2 - GASTROINTESTINAL HEMORRHAGE, UNSPECIFIED Status: Acute (2) H/O cardiac arrest Code(s): Z86.74 - PERSONAL HISTORY OF SUDDEN CARDIAC ARREST Status: Acute (3) Liver failure, acute Status: Acute (4) Shock liver Code(s): K72.00 - ACUTE AND SUBACUTE HEPATIC FAILURE WITHOUT COMA Status: Acute (5) Ascites due to alcoholic cirrhosis Code(s): K70.31 - ALCOHOLIC CIRRHOSIS OF LIVER WITH ASCITES Status: Acute (6) Lactic acidosis Code(s): E87.2 - ACIDOSIS Status: Acute (7) Fluid overload Code(s): E87.70 - FLUID OVERLOAD, UNSPECIFIED Status: Acute (8) Hepatic encephalopathy Code(s): K72.90 - HEPATIC FAILURE, UNSPECIFIED WITHOUT COMA Status: Acute (9) RAJENDRA (acute kidney injury) Code(s): N17.9 - ACUTE KIDNEY FAILURE, UNSPECIFIED Status: Acute (10) Hyperkalemia Code(s): E87.5 - HYPERKALEMIA Status: Acute (11) Hypertension Code(s): I10 - ESSENTIAL (PRIMARY) HYPERTENSION Status: Acute (12) Thrombocytopenia Code(s): D69.6 - THROMBOCYTOPENIA, UNSPECIFIED Status: Acute (13) Cardiac murmur Code(s): R01.1 - CARDIAC MURMUR, UNSPECIFIED Status: Acute - Plan Plan: GI bleed with Cardiac Arrest s/p ROSC - s/p massive transfusion protocol, 12u pRBC given - Per GI continue goal of H&H of 7 & 21. - GI consulted, appreciate Dr. Harris triplett - s/p EGD with intervention 10/28 - Grade 2 Varices and multiple ulcerations found - Continue Octreotide for full 24 hours - H & H this AM 7.8 & 22.5 - Platelet count 78 - Will continue Q6h hour CBC at a minimum to determine when he will need further transfusions. Sepsis with concern for SBP -Diagnostic Paracentesis 10/28/18- sent for stain and culture. - continue Rocephin 2g daily - Cultures pending - WBC downtrended to 16.5 Hyperkalemia - resolved following dialysis - Potassium 4.7, no cardiac symptoms as of now. - insulin - Consider Kayexalate when GI status improves. - Will trend BMP Fluid Overload 2/2 Liver failure - Pt is overloaded but is not in respiratory distress and appears stable - Patient has been draining fluid from his peritoneal cavity since paracentesis sampling. - NPO currently - GI consulted- Dr. Iglesias- follow recs. - Albumin Q6h scheduled - monitor symptoms and physical exam - Consulted Nephrology, Appreciate Dr. Rosales's recs. - Will continue dialysis at this time per Nephro recs. Hepatic Encephalopathy - Currently intubated and sedated - Unclear if ammonia level vs anoxic injury is cause of neuro exam - Ammonia 327. - Lactulose DC with Pharmacy to dose - GI consulted Shock Liver - Likely secondary to GI bleed and underlying pathology - LFTs continue to elevate Lactic Acidosis -Likely due to liver failure and not clearing. Could be due to SBP - Last check 13.8 - Will await cx. RAJENDRA vs ARF - Likely due to recent events - Will consider Lasix dosing - Urine output less than 25ml/hr since admission - Nephrology consulted and recommended initiating dialysis. Thrombocytopenia - Likely due to platelet sequestration - Will continue to trend Cardiac murmur - newly found today - Will order ECHO to determine efficient cardiac function at this time. HTN - Held home meds - Currently on Levophed at 20 mcg Disposition: Guarded, will continue current plan of care in ICU. <Jomar Kirk - Last Filed: 10/30/18 08:17> Attending Addendum - Attending Addendum Date/Time: 10/30/18 5152 I personally evaluated the patient and discussed the management with Dr. Kirk. I agree with the History, Examination, Assessment and Plan documented above with any addition or exceptions noted below. Patient has not yet made any meaningful improvement. Continues on ventilator and no spontaneous responses, though this is likely due to profound hepatic encephalopathy as evidenced by his ammonia level. Continue lactulose DC. He received HD yesterday due to ARF and has made very little urine output. Awaiting Nepho recs but anticipate HD again today. Hgb downtrending, nearing point of needing transfusion again. GI on board, continues on Protonix drip as well as Octreotide. NPO status will continue. Liver continues to show shock liver type labs and coags pending. He is having some oozing that is likely both from coagulopathy associated with liver failure as well as toxin mediated. Plt dropped today, anticipate this is due to splenic sequestration, though DIC is also a possibility. WBC downtrending, afebrile. Continues on Rocephin though no infectious cause identified at this time. If no improvement today, will get palliative care on board tomorrow or this afternoon to help family cope with this poor prognosis. <Kareem Smith - Last Filed: 10/30/18 09:56>
[2018-10-30 08:53] LABS: Actual Bicarbonate (HCO3a) 25.5 mEq/L (22-28); Base Excess (BEa) -0.8 mEq/L (-2.0 to +3.0); CO2 Tension 50.8 mmHg (35.0-45.0); Calcium, Ionized 0.98 mmol/L (1.12-1.30); Carboxyhemoglobin (COHb) 1.4 gm% (0.0-3.0); Hemoglobin (Hb) 7.8 g/dL (14.0-18.0); O2 Tension (PaO2) 63.1 mmHg (80.0-100.0); Potassium - ABG Lab 4.75 mmol/L (3.70-5.30); pH, Arterial 7.32 (7.35-7.45)
[2018-10-30 08:54] LABS: Puncture Site LRA
--- NOTE | 2018-10-30 08:59 | PRG ---
DATE OF SERVICE: 10/30/2018 SUBJECTIVE: Jose Cardenas remains intubated in the vent, sedated. He is on pressors. He is on Protonix drip and octreotide drip. OBJECTIVE: VITAL SIGNS: His pulse is 99, blood pressure is 118/43, saturations of barely 88 to 90, respirations at 20. HEENT: He is jaundiced. Pupils are 2 mm, unresponsive. CHEST: No rhonchi or crackles. CARDIAC: Sinus tach. ABDOMEN: Distended, ascites. LABORATORY DATA: His white count is 16,000, H and H 7 and 22, platelet count is 78, low. His creatinine is 2.0, BUN is 39. His ALT is _3263 IMPRESSION: 1. End-stage liver disease, cirrhosis. 2. Respiratory failure, acute respiratory distress syndrome. 3. Tense ascites. 4. Renal failure. 5. Status post cardiopulmonary arrest. He is clearly not weanable at this stage. Continue all supportive care, PT, nutrition, broad spectrum antibiotics. We will discuss with family. This is a one-half hour critical time. Job ID: [id number] MTDD
[2018-10-30] MEDS: Ferrous Sulfate 325 MG TAB PO SCH (09:03)
--- NOTE | 2018-10-30 09:04 | OP ---
DATE OF PROCEDURE: 10/29/2018 PREOPERATIVE DIAGNOSES: Acute renal failure, acidosis, hyperkalemia, in need of a urgent dialysis; cirrhosis, ascites, coagulopathy. POSTOPERATIVE DIAGNOSES: Acute renal failure, acidosis, hyperkalemia, in need of a urgent dialysis; cirrhosis, ascites, coagulopathy. PROCEDURE: Left femoral vein Trialysis catheter. ANESTHESIA: None. DESCRIPTION OF PROCEDURE: With the patient at the bedside, the patient has been heavily sedated on the ventilator. Left groin was prepared with ChloraPrep and draped in routine fashion. Seldinger technique was used to place a Trialysis catheter, placing a J wire trocar catheter in the femoral vein, placing multiple dilators, removing them, placed in the distal port of the Trialysis catheter with J-wire into the femoral vein and J-wire removed. Each port filled with blood, flushed with heparinized saline solution. Catheter was secured with 3-0 nylon. Sterile dressings were applied. Job ID: [id number]
[2018-10-30 09:10] LABS: Hemoglobin 7.9 g/dL (14.0-18.0)
--- NOTE | 2018-10-30 09:16 | RAD ---
PORTABLE CHEST ONE VIEW: Date: 10-30-18 Time: 7:41 a.m. History: Respiratory failure. FINDINGS/IMPRESSION: Comparison is made with exam of 10-27-18. Endotracheal tube remains in place. Nasogastric tube has been removed in the interim. Bilateral perih ilar infiltrates demonstrate interval worsening consistent with edema. No pneumothoraces are seen. Th ere is blunting of the costophrenic angles likely due to pleural effusions. POS: [facility]
[2018-10-30 09:20] LABS: PTT 46.4 SEC (22.9-36.1); Prothrombin Time 39.4 SEC (12.0-14.7)
[2018-10-30] MEDS: Lactulose 10 GM/15 ML Oral Solution PR SCH ×3 (09:33→15:18)
[2018-10-30 09:36] LABS: Potassium 4.9 mmol/L (3.5-5.1)
[2018-10-30 10:02] LABS: INR-International Normal Ratio 4.1
[2018-10-30] MEDS ORDERED: Calcium Chloride 1 GM/10 ML Abboject SYRINGE IVP SCH (10:30)
[2018-10-30] MEDS ORDERED: Vasopressin 40 UNIT, Admixture Fee 1 EACH in Sodium Chloride 0.9% 100 ML IV SCH (10:45)
[2018-10-30] MEDS: Hydrocortisone Sod Succ/PF 100 mg/2 ml Vial IVP SCH ×2 (10:57→18:29)
--- NOTE | 2018-10-30 11:40 | PRG ---
DATE OF SERVICE: 10/30/2018 SUBJECTIVE: A 38-year-old gentleman, being seen for acute kidney injury, remains anuric and intubated. OBJECTIVE: CONSTITUTIONAL: The patient is resting. VITAL SIGNS: Afebrile, pulse 94, breathing 16, blood pressure . EXTREMITIES: The patient has 4+ edema. HEAD/NECK: Normocephalic. Atraumatic. EYES: EOMI. No deformity. EARS: Clear. No ulcers. NOSE: Intact. No lesions. MOUTH: Clear. No discharge. THROAT: Clear. No exudate. LUNGS: Clear. No crackles. CARDIAC: S1, S2. No rub. ABDOMEN: Benign. Bowel sounds positive. GENITALIA/RECTUM: Hightower absent. BACK/EXTREMITIES: Edema 0+. NEUROLOGICAL: comatose SKIN: LYMPHATICS:edema 4 + LABORATORY DATA: Labs show hemoglobin 7.9. Potassium is 4.9. ASSESSMENT: Acute kidney injury, oliguria. Plan dialysis. The patient remains on pressors, so prognosis is extremely poor. Risks versus benefits of dialysis were discussed. Anemia, we would recommend transfusion. Hypotension, sepsis, multiorgan failure. Prognosis is extremely poor. Job ID: [id number] [facility]
[2018-10-30] MEDS: Pantoprazole 80 MG in Sodium Chloride 0.9% 100 ML IVP SCH (12:32)
--- NOTE | 2018-10-30 14:11 | EKG ---
Test Reason : Blood Pressure : / mmHG Vent. Rate : 102 BPM Atrial Rate : 102 BPM P-R Int : 122 ms QRS Dur : 096 ms QT Int : 362 ms P-R-T Axes : 034 037 009 degrees QTc Int : 471 ms Sinus tachycardia Otherwise normal ECG Confirmed by ERIC GARCÍA DO ([id number]), [employer] ARELI HERNANDEZ ([id number]) on 10/30/2018 2:11:47 PM Referred By: Confirmed By:ERIC GARCÍA DO
[2018-10-30 15:03] LABS: Hemoglobin 7.8 g/dL (14.0-18.0)
[2018-10-30 15:12] VITALS: BP 106/49
[2018-10-30] MEDS: cefTRIAXone\\ROCEPHIN 2 GM in Sodium Chloride 0.9% 100 ML IVPB SCH (15:18)
--- NOTE | 2018-10-30 20:14 | PRG ---
DATE OF SERVICE: 10/30/2018 REASON FOR CONSULTATION: Hematemesis, cirrhosis, ascites, and hepatic encephalopathy. SUBJECTIVE: Paracentesis was attempted yesterday afternoon, but unable to find a margin of pocket for therapeutic purposes, but rather interstitial edema was noted throughout the entire abdominal wall consistent with third spacing. There were no additional overnight events or problems, but during the course of today, the patient has been placed on additional pressor to maintain pressure support. Per nursing staff, every time the patient is moved, he does experience a rapid decrease in pressure resulting in hypotension that usually resolves with decreased agitation. He has been getting lactulose enemas as well, but no change in his mental status up until now. OBJECTIVE: VITAL SIGNS: Temperature 98.4, pulse 93, blood pressure 127/40, respiratory rate 28, and saturating 92% on mechanical ventilation. GENERAL: The patient is intubated with some spontaneous movements, but nonpurposeful. The patient has been off sedation medication. CARDIOVASCULAR: Regular rate and rhythm. RESPIRATORY: Coarse breath sound heard in all lung varela, consistent with mechanical ventilation. ABDOMEN: Hypoactive bowel sounds. No grimacing to palpation. Significant abdominal distention with oozing of fluid along the left lower quadrant from paracentesis obtained 2 days ago, mildly tense to palpation. EXTREMITIES: Bilateral lower extremity edema extending up to the hip of approximately 2+/3+ indicative of anasarca. LABORATORY DATA: CBC with a white blood cell count of 16.5, hemoglobin 7.8, hematocrit 22.5, and platelets 78. INR 4.1. Chemistry with a sodium of 137, potassium 4.7, chloride 96, CO2 of 25, BUN 39, creatinine 2.08, and glucose 126. AST greater than 3500, ALT 3263, alkaline phosphatase 307, and total bilirubin 9.7. MELD score calculated at 38. IMAGING DATA: No current GI imaging is available for review. ASSESSMENT AND PLAN: The patient is a 38-year-old male with past medical history of hypertension, diabetes, and new diagnosis of cirrhosis complicated by ascites, hepatic encephalopathy, and now esophageal varices, presenting with hematemesis and altered mental status. Hematemesis/upper GI bleed: The patient presented with progressive worsening of altered mental status over 2 to 3 days prior to admission, which prompted the to bring the patient to the ER for further evaluation. On admission, he was noted to be mildly anemic as well as having some difficulty breathing, but experienced acute hypoxic respiratory failure while in the ED with subsequent CPR initiated as well as endotracheal tube intubation in order to successfully resuscitate the patient, which was achieved after 30 minutes. He was noted to have a significant amount of blood at the end of the code, for which he underwent an urgent upper endoscopy on October 28, 2018, with the findings of large nonbleeding esophageal varices within the distal esophagus, but also multiple small ulcerations within the stomach and a 4 to 5 mm ulceration in the prepyloric region with an overlying adherent clot consistent with a recent gastrointestinal bleed. At this point, the more likely reason for his bleed is within the ulcer found in the prepyloric region. Given his elevated INR at 4.1 today, he could be potentially bleeding from any mucosal surface. His H and H just continued to downtrend some, but not significantly so with no melenic stools per nursing staff. Recommendations; 1. Would continue to trend H and H and transfuse as necessary to maintain H and H of 7/21. 2. Continue to monitor clinically for signs of GI bleeding. 3. Continue PPI drip given the presence of a gastric ulcer and has the possible bleeding source along with other ulcerations that could potentially bleed with supratherapeutic INR. 4. Would discontinue octreotide drip at this time given the less likelihood of variceal bleed. Cirrhosis: The patient presented with fairly acute onset of increased abdominal distention approximately 3 to 4 weeks ago with a diagnosis of cirrhosis made at that time. Further imaging showing possible cirrhotic morphology and with the evidence of thrombocytopenia is concerning for cirrhosis. Diagnostic paracentesis obtained 2 days ago was not indicative of spontaneous bacterial peritonitis with culture still pending at this time. At this point, the etiology of the cirrhosis is unknown, but most likely related to his chronic alcohol abuse. Upon calculation of his MELD score of approximately 38 today indicating a very poor 90-day prognosis carrying a 90-day mortality of approximately 70% to 80%. Recommendations; 1. Continue current management at this time. 2. Would consider obtaining a CT of the abdomen and pelvis with contrast to evaluate for Budd-Chiari, but at this point, I do not think it would affect further clinical management and can be held. Hepatic encephalopathy: The patient had been exhibiting increased somnolence and memory loss prior to admission consistent with hepatic encephalopathy. It is difficult to tell if this was due to possible upper GI bleeding, introducing an increased ammonia load within the GI system or worsening liver dysfunction. Further re-evaluation of his ammonia today indicated a serum ammonia of approximately 350, which would make any evaluation of mental status difficult including EEG. Attempts to move the patient in order to deliver lactulose enemas have been resulting in significant hypotension and at this point are questionable in terms of efficacy. Recommendations; 1. Would attempt to continue the patient on lactulose enemas at this time, but also would consider placement of an OG tube for oral administration of lactulose to help with hyperammonemia. Would avoid from aggressive suctioning of the OG tube if placed due to risks of removal of a clot from the recent GI bleed. 2. Would avoid any unnecessary use of sedation or mind-altering medications. Transaminitis: The patient initially presented with a mild transaminitis on admission, which could have been due to his chronic alcohol abuse given his 2:1 distribution of AST to ALT; however, his AST and ALT are over 3000 each, most likely due to hypotension and circulatory arrest generating ischemia within the liver during the code when he was admitted to the hospital. Recommendations; 1. Would continue to maintain adequate perfusion of the liver that can be achieved with pressor support at the current time. 2. Would continue to monitor LFTs daily for signs of resolution on the post code period. At this time, based on his MELD score of approximately 38, his 90-day mortality is quite high with a very guarded status/poor prognosis. I had a very lengthy discussion with the patient's and family and as well as his current code status with the to make further decision on continued management at this time. We will continue to follow. Please call with any questions. Job ID: [id number]
[2018-10-30] MEDS ORDERED: Norepinephrine 8 MG/0.9% NS 250 ML ONE (20:24)
[2018-10-30 21:21] VITALS: TEMP 98.6
--- NOTE | 2018-10-30 22:24 | PDOC.EVN ---
Event Note - Event Note Event Note: Code noemi called at 2023. Pt reportedly went into wide complex bradycardia with worsening O2 saturations. CPR initiated by CCU nursing staff. Resident team to room at 2024. Family was at bedside during event and decided at 2025 to stop resuscitative efforts. Please see code records and dictated summary for further details. Time of 2029.
--- NOTE | 2018-10-31 03:29 | DIS ---
SUMMARY ATTENDING: Kareem Smith MD. RESIDENT: Isaac Zee MD. DATE OF ADMISSION: 10/28/2018 DATE OF : 10/30/2018. TIME OF : 2030 hours. CAUSE OF : 1. Acute liver failure secondary to unknown etiology. 2. Hepatic encephalopathy secondary to above. 3. Acute blood loss anemia secondary to upper gastrointestinal bleed. 4. Acute renal failure secondary to above. 5. Lactic acidosis. 6. Cardiac arrest, status post ROSC on 10/28/2018. SECONDARY DIAGNOSES: 1. Hypertension. 2. Diabetes mellitus type 2. HOSPITAL COURSE: In short, the patient was a 38-year-old male who presented with confusion and shortness of breath. Please refer to event and progress notes throughout hospitalization for more detailed information. However, the patient quickly deteriorated due to acute liver failure of unknown etiology, ultimately requiring multiple blood products. The patient did code on 10/28/2018 and ROSC was achieved after multiple rounds of CPR and intervention, including massive transfusion. The patient was ultimately admitted to the critical care unit on vasopressors and ventilator support. The patient had another code blue event called on the evening of 10/30/2018 when the patient entered into a wide complex bradycardia and ultimately went into asystole. The family was at bedside at this time and decided to stop resuscitative efforts. Orders were placed for the body to be discharged to the [facility] for autopsy. Job ID: [id number] MTDD
--- NOTE | 2018-11-01 18:09 | PQF ---
ALEXANDRA GONZALEZ RUSSEL B MD [id number] CLINICAL DOCUMENTATION CLARIFICATION FORM: POST DISCHARGE Addendum to original discharge summary date: ____ Late entry note date: __ DATE: 11/01/18 ATTN: Please exercise your independent, professional judgment in responding to the clarification form. Clinical indicators are provided on the bottom of this form for your review Please check appropriate box(es): [ ] Sepsis due to: (Pna, UTI, gangrenous gall bladder, etc.) Due to: [ ] Device (please specify) [ ] Implant [ ] Graft [ ] Infusion [ ] SIRS due to non-infectious process (please specify etiology) [ ] with organ dysfunction [ ] without organ dysfunction [ ] Severe sepsis with acute organ dysfunction of: (Examples: respiratory failure, encephalopathy, acute kidney failure, other) [ ] Septic Shock [ ] Localized infection without sepsis [ ] Other diagnosis [ ] Unable to determine In addition, please specify: Present on Admission (POA): [ ] Yes [ ] No [ ] Unable to determine For continuity of documentation, please document condition throughout progress notes and discharge summary. Thank You. CLINICAL INDICATORS - SIGNS / SYMPTOMS / LABS Altered mental status Fever or hypothermia (<96.8 F/36 C or > 100.4 F/38C) Respiratory rate >20/min, Hypoxemia, Shock-liver WBC count (>12,000/mm^4 or <4000/mm^3 or 10% neuts, 10% bands) RISK FACTORS Acute respiratory failure Cardiac arrest TREATMENTS: IV antibiotics - broad spectrum IV Fluids (This form is maintained as a part of the permanent medical record) 2014 [employer]. All Rights Reserved Alli [email or web address] [phone] MTDD
== END 2018-10-30 20:26 | disposition expired | DRG 441 ==
LOC: ERS 11:14 → ERHOLD 14:43 → CCU 21:28
PROVIDERS: ADMIT Family Medicine; ATTEND Family Medicine
PROC: 0D568ZZ Destruction of Stomach, Via Natural or Artificial Opening Endoscopic (ICD-10-PCS; 2018-10-28)
PROC: 5A12012 Performance of Cardiac Output, Single, Manual (ICD-10-PCS; 2018-10-28)
PROC: 0BH17EZ Insertion of Endotracheal Airway into Trachea, Via Natural or Artificial Opening (ICD-10-PCS; 2018-10-28)
PROC: 5A1945Z Respiratory Ventilation, 24-96 Consecutive Hours (ICD-10-PCS; 2018-10-28)
PROC: 30233K1 Transfusion of Nonautologous Frozen Plasma into Peripheral Vein, Percutaneous Approach (ICD-10-PCS; 2018-10-28)
PROC: 30233R1 Transfusion of Nonautologous Platelets into Peripheral Vein, Percutaneous Approach (ICD-10-PCS; 2018-10-28)
PROC: 30233M1 Transfusion of Nonautologous Plasma Cryoprecipitate into Peripheral Vein, Percutaneous Approach (ICD-10-PCS; 2018-10-28)
PROC: 5A1D70Z Performance of Urinary Filtration, Intermittent, Less than 6 Hours Per Day (ICD-10-PCS; 2018-10-28)
PROC: 5A1D70Z Performance of Urinary Filtration, Intermittent, Less than 6 Hours Per Day (ICD-10-PCS; 2018-10-28)
PROC: 3E033XZ Introduction of Vasopressor into Peripheral Vein, Percutaneous Approach (ICD-10-PCS; 2018-10-28)
PROC: 06HN33Z Insertion of Infusion Device into Left Femoral Vein, Percutaneous Approach (ICD-10-PCS; principal; 2018-10-29)
PROC: 0W9G3ZX Drainage of Peritoneal Cavity, Percutaneous Approach, Diagnostic (ICD-10-PCS; 2018-10-29)
DX: K72.00 Acute and subacute hepatic failure without coma (principal); J96.01 Acute respiratory failure with hypoxia; K25.4 Chronic or unspecified gastric ulcer with hemorrhage; N17.9 Acute kidney failure, unspecified; E87.2 Acidosis; D68.4 Acquired coagulation factor deficiency; D62 Acute posthemorrhagic anemia; I85.00 Esophageal varices without bleeding; E87.5 Hyperkalemia; K70.31 Alcoholic cirrhosis of liver with ascites; K72.90 Hepatic failure, unspecified without coma; F10.20 Alcohol dependence, uncomplicated; I10 Essential (primary) hypertension; I46.9 Cardiac arrest, cause unspecified; Z87.891 Personal history of nicotine dependence; Z79.84 Long term (current) use of oral hypoglycemic drugs; Z79.82 Long term (current) use of aspirin; E66.9 Obesity, unspecified; Z79.899 Other long term (current) drug therapy; D69.6 Thrombocytopenia, unspecified; E87.70 Fluid overload, unspecified; R00.1 Bradycardia, unspecified; E11.9 Type 2 diabetes mellitus without complications; D50.9 Iron deficiency anemia, unspecified
CPT/HCPCS: 31500; 36415; 36416; 36430; 36556; 43753; 49082; 51703; 71045; 76705; 76770; 80053; 81003; 81015; 82042; 82140; 82274; 82533; 82550; 82805; 83605; 83880; 84132; 84157; 84484; 85025; 85060; 85610; 85730; 86704; 86706; 86803; 86850; 86900; 86901; 87040; 87070; 87086; 87205; 87340; 89051; 90935; 93005; 93306; 94002; 94003; 94640; 96361; 96365; 96366; 96367; 96368; 96374; 96375; C1752; C9113; G0257; J0171; J0461; J0696; J1430; J1642; J1720; J1815; J1940; J2001; J2354; J2704; J2765; J3010; J7050; J7070; J7620; P9012; P9016; P9035; P9047; P9048; P9059